=== PATIENT | female | born 1990 | race Asian ===

== ENCOUNTER 2016-12-11 16:40 | Inpatient (IN) | payer BC ==
[2016-12-11] MEDS ORDERED: Sodium Chloride 0.9% 2.5 ML Syringe FLUSH PRN (16:55)
[2016-12-11] MEDS ORDERED: Sodium Chloride 0.9% 10 ML Syringe FLUSH PRN (16:55)
[2016-12-11] MEDS ORDERED: Water For Irrigation,Sterile 1,000 ML Container IRR PRN (16:55)
[2016-12-11] MEDS ORDERED: Terbutaline 1 MG/ML SDV SUBCUT PRN (16:55)
[2016-12-11] MEDS ORDERED: Methylergonovine 0.2 MG/1 ML Amp IM PRN (16:55)
[2016-12-11] MEDS ORDERED: Carboprost Tromethamine 250 MCG/1 ML Amp IM PRN (16:55)
[2016-12-11] MEDS ORDERED: Misoprostol 200 MCG Tab PO PRN (16:55)
[2016-12-11] MEDS ORDERED: Misoprostol 25 MCG (1/4 of 100 MCG) Tab VAG PRN (16:55)
[2016-12-11] MEDS ORDERED: Lidocaine 1% 50 ML MDV INJECT PRN (16:55)
[2016-12-11] MEDS ORDERED: Misoprostol 25 MCG (1/4 of 100 MCG) Tab VAG SCH (17:00)
[2016-12-11] MEDS ORDERED: Oxytocin/Lactated Ringers 30 UNIT/500 ML BAG IV SCH ×2 (17:00)
[2016-12-11] MEDS: Lactated Ringers 1,000 ML IV SCH (17:30)
[2016-12-11] MEDS: Butorphanol 1 MG/ML SDV IVPUSH PRN ×2 (20:45→22:13)
[2016-12-12] MEDS: Butorphanol 1 MG/ML SDV IVPUSH PRN (00:10)
[2016-12-12] MEDS: Lactated Ringers 1,000 ML IV SCH ×3 (01:09→05:42)
--- NOTE | 2016-12-12 01:24 | PCM.PREANE ---
Preanesthetic Assessment - Anesthesia/Transfusion/Family Hx Anesthesia History: No Prior Anesthesia Transfusion History: No Prior Transfusion(s) - Physical Assessment Height: 5 ft Weight: 64.864 kg - Lab Values: Laboratory Last Values WBC 13.12 K/uL (4.0-11.0) H 12/11/16 17:21 RBC 4.13 M/uL (4.30-5.90) L 12/11/16 17:21 Hgb 12.3 g/dL (12.0-16.0) 12/11/16 17:21 Hct 37.8 % (36.0-46.0) 12/11/16 17:21 MCV 91.5 fL (80.0-98.0) 12/11/16 17:21 MCH 29.8 pg (27.0-32.0) 12/11/16 17:21 MCHC 32.5 g/dL (31.0-37.0) 12/11/16 17:21 RDW Std Deviation 46.1 fl (28.0-62.0) 12/11/16 17:21 RDW Coeff of Maria Elena 14 % (11.0-15.0) 12/11/16 17:21 Plt Count 212 K/uL (150-400) 12/11/16 17:21 MPV 10.70 fL (7.40-12.00) 12/11/16 17:21 Nucleated RBC % 0.0 /100WBC 12/11/16 17:21 Nucleated RBCs # 0 K/uL 12/11/16 17:21 Blood Type O POSITIVE 12/11/16 17:21 Antibody Screen NEGATIVE 12/11/16 17:21 - Allergies Allergies/Adverse Reactions: Allergies Allergy/AdvReac Type Severity Reaction Status Date / Time No Known Allergies Allergy Verified 12/11/16 16:54 PreAnesthesia Questionnaire - Past Health History Medical/Surgical History: Denies Medical/Surgical History HEENT History: Reports: Impaired vision Cardiovascular History: Reports: None Respiratory History: Reports: None Gastrointestinal History: Reports: GERD Genitourinary History: Reports: None ALARM MECHANIC History: Reports: Polycystic Ovaries, : 1 Para: 0 LMP (Approximate): Musculoskeletal History: Reports: None Neurological History: Reports: None Psychiatric History: Reports: None Endocrine/Metabolic History: Reports: None Hematologic History: Reports: None Immunologic History: Reports: None Oncologic (Cancer) History: Reports: None Dermatologic History: Reports: None - Infectious Disease History Infectious Disease History: Reports: None - Past Surgical History HEENT Surgical History: Reports: None - SUBSTANCE USE Smoking Status *Q: Never Smoker Tobacco Use Within Last Twelve Months: No Second Hand Smoke Exposure: No Recreational Drug Use History: No - CURRENT (IN HOUSE) MEDS Current Meds: Current Medications Butorphanol Tartrate (Stadol) 1 mg IVPUSH Q1H PRN PRN Reason: Pain Last Admin: 12/12/16 00:10 Dose: 1 mg Carboprost Tromethamine (Hemabate Ds) 250 mcg IM ASDIRECTED PRN PRN Reason: Post Hemorrhage Lactated Ringer's (Ringers, Lactated) 1,000 mls @ 150 mls/hr IV ASDIRECTED RD Last Admin: 12/12/16 01:09 Dose: 150 mls/hr Oxytocin/Lactated Ringer's (Pitocin In Lr 30 Units/500 Ml) 30 unit in 500 mls @ 2 mls/hr IV TITRATE RD; 2 MUNITS/MIN PRN Reason: Protocol Lidocaine HCl (Xylocaine 1%) 50 ml INJECT .ONCE PRN PRN Reason: Laceration repair Methylergonovine Maleate (Methergine) 0.2 mg IM ASDIRECTED PRN PRN Reason: Post Hemorrhage Misoprostol (Cytotec) 200 mcg PO .ONCE PRN PRN Reason: Post Hemorrhage Misoprostol (Cytotec) [address] Misoprostol (Cytotec) 25 mcg VAG Q4H PRN PRN Reason: Cervical Ripening Stop: 12/12/16 20:56 Sodium Chloride (Saline Flush) 10 ml FLUSH ASDIRECTED PRN PRN Reason: Keep Vein Open Sodium Chloride (Saline Flush) 2.5 ml FLUSH ASDIRECTED PRN PRN Reason: Keep Vein Open Sterile Water (Sterile Water For Irrigation) 1,000 ml IRR ASDIRECTED PRN PRN Reason: delivery Terbutaline Sulfate (Brethine) 0.25 mg SUBCUT ASDIRECTED PRN PRN Reason: Tacysystole Discontinued Medications Oxytocin/Lactated Ringer's (Pitocin In Lr 30 Units/500 Ml) 30 unit in 500 mls @ 999 mls/hr IV TITRATE RD; 999 MUNITS/MIN PRN Reason: Protocol Stop: 12/11/16 17:31 Preanesthetic Assessment - ANESTHESIA/TRANSFUSION/FAMILY HX Anesthesia/Transfusion History: No Prior Anesthesia Family History of Anesthesia Reaction: No - REVIEW OF SYSTEMS Constitutional: Reports: no symptoms HEALTH CLAIMS EXAMINER: Reports: no symptoms Respiratory: Reports: no symptoms Cardiovascular: Reports: no symptoms GI: Reports: no symptoms Other: Reports: None - PHYSICAL ASSESSMENT HR: 80 O2 Sat by Pulse Oximetry: 99 RR: 20 BP: 131/83 Height: 5 ft Weight: 64.864 kg ASA Class: 2 Mental Status: Alert & Oriented x3 Airway Class: Mallampati = 2 Dentition: Reports: Normal Dentition Thyro-Mental Finger Breadths: 3 Mouth Opening Finger Breadths: 3 ROM/Head Extension: Full Respiratory Status: lungs clear to auscultation bilaterally Cardiovascular Status: regular rate & rhythm, normal S1, S2, no murmur, blood pressure WNL - LAB Values: Laboratory Last Values WBC 13.12 K/uL (4.0-11.0) H 12/11/16 17:21 RBC 4.13 M/uL (4.30-5.90) L 12/11/16 17:21 Hgb 12.3 g/dL (12.0-16.0) 12/11/16 17:21 Hct 37.8 % (36.0-46.0) 12/11/16 17:21 MCV 91.5 fL (80.0-98.0) 12/11/16 17:21 MCH 29.8 pg (27.0-32.0) 12/11/16 17:21 MCHC 32.5 g/dL (31.0-37.0) 12/11/16 17:21 RDW Std Deviation 46.1 fl (28.0-62.0) 12/11/16 17:21 RDW Coeff of Maria Elena 14 % (11.0-15.0) 12/11/16 17:21 Plt Count 212 K/uL (150-400) 12/11/16 17:21 MPV 10.70 fL (7.40-12.00) 12/11/16 17:21 Nucleated RBC % 0.0 /100WBC 12/11/16 17:21 Nucleated RBCs # 0 K/uL 12/11/16 17:21 Blood Type O POSITIVE 12/11/16 17:21 Antibody Screen NEGATIVE 12/11/16 17:21 - ALLERGIES Allergies/Adverse Reactions: Allergies Allergy/AdvReac Type Severity Reaction Status Date / Time No Known Allergies Allergy Verified 12/11/16 16:54 - ANESTHESIA PLAN Anesthesia Type Planned: Epidural - ACKNOWLEDGEMENTS Pt an Appropriate Candidate for the Planned Anesthesia: Yes Alternatives and Risks of Anesthesia Discussed w Pt/Guardian: Yes Pt/Guardian Understands and Agrees with Anesthesia Plan: Yes
[2016-12-12] MEDS ORDERED: Ropivacaine HCl/PF 100 ML ONE ×2 (01:26→09:36)
[2016-12-12] MEDS ORDERED: fentaNYL 100 MCG/2 ML SDV ONE (01:26)
[2016-12-12] MEDS ORDERED: Bupivacaine 0.25% 10 ML SDV ONE (08:24)
--- NOTE | 2016-12-12 09:13 | PCM.SN ---
- Free Text/Narrative Note: Called for increased pain. 0.25% Bupivacaine 5 mL via epidural was given for increasing painful vaginal pressure/pain. Pt states her pain is better at this time. Instructed her on the use of her GROUT MACHINE TENDER epidural.
--- NOTE | 2016-12-12 10:25 | PCM.SN ---
- Free Text/Narrative Note: 0955 - Epidural bag changed. Pt states she is still comfortable. VSS
[2016-12-12] MEDS ORDERED: Lidocaine 2% 5 ML SDV ONE ×3 (11:37→13:03)
--- NOTE | 2016-12-12 11:50 | PCM.SN ---
- Free Text/Narrative Note: consulted for increased pain in lower abdomen. bilateral distribution of pain. , 40 weeks. complete, but not wanting to push secondary to pain. Epidural working well untill this point. On Pitocin. Epidural topped off with 7 ml of preservative free 2% lidocaine at 1145.
--- NOTE | 2016-12-12 13:15 | PCM.SN ---
- Free Text/Narrative Note: Still having lower abdominal pain. Dr Guzman reports pt has perineal sensation with exam. Will give an additional dose of 10 ml 2% preservative free lidocain. If still inadequate analgesia will pull epidural catheter and give 2.5 mg bupivicaine intrathecal. Catheter site looks good. No evidence of catheter displacement. 10 ml of Lidocaine given at 1300. Pt reports significant relief of pain at 1315.
[2016-12-12] MEDS ORDERED: Bupivacaine 0.5% 10 ML SDV ONE (13:23)
[2016-12-12] MEDS ORDERED: Hydrocortisone 2.5% Crm 30 GM Tube TOP PRN (14:39)
[2016-12-12] MEDS ORDERED: Bisacodyl 10 MG Supp RECTAL PRN (14:39)
[2016-12-12] MEDS ORDERED: Acetaminophen 500 MG Tab PO PRN ×2 (14:39)
[2016-12-12] MEDS ORDERED: Lanolin 100% Cream 7 GM Tube TOP PRN (14:39)
[2016-12-12] MEDS ORDERED: oxyCODONE 5 MG Tab PO PRN (14:39)
[2016-12-12] MEDS ORDERED: Ibuprofen 400 MG Tab PO PRN (14:39)
[2016-12-12] MEDS: Witch Hazel Medicated Pads 40/Jar TOP PRN (14:58)
[2016-12-12] MEDS: Benzocaine/Menthol 20%-0.5% Spray 78 GM Cannister TOP PRN (14:58)
[2016-12-12] MEDS: Ibuprofen 800 MG Tab PO PRN (14:59)
--- NOTE | 2016-12-12 18:09 | PCM48HPAN ---
Post Anesthesia Note - EVALUATION WITHIN 48HRS OF ANESTHETIC Vital Signs in Normal Range: Yes Patient Participated in Evaluation: Yes Respiratory Function Stable: Yes Airway Patent: Yes Cardiovascular Function Stable: Yes Hydration Status Stable: Yes Pain Control Satisfactory: Yes Nausea and Vomiting Control Satisfactory: Yes Mental Status Recovered: Yes
--- NOTE | 2016-12-12 22:52 | OR ---
SURGEON: Matilde Grove M.D. DATE OF PROCEDURE: 12/12/2016 PREOPERATIVE DIAGNOSES: 1. A 40 and 6 weeks intrauterine . 2. Labor augmentation. 3. Maternal exhaustion. POSTOPERATIVE DIAGNOSES: 1. A 40 and 6 weeks intrauterine . 2. Labor augmentation. 3. Maternal exhaustion. PROCEDURE: Vacuum assisted vaginal delivery, second-degree midline laceration repair. ESTIMATED FLUID LOSS: 350 mL. ANESTHESIA: Epidural and local. COMPLICATIONS: None known. FINDINGS: Term male. score 8 at 1 minute, 9 at 5 minutes. Weight of 3400 g. Spontaneous delivery, intact placenta, 3-vessel cord. DISPOSITION: Infant to nursery, mom in LDRP, stable. PROCEDURE IN DETAIL: Hyacinth is a 26-year-old, G1, P0 at 40 and 6 weeks' gestational age, who presented on the evening of 12/11/2016. She was scheduled for induction, but on examination was found to have cervical change to 3 cm and rusty regularly. Therefore, she was admitted, routine labs were drawn, and she was monitored and continued to progress in labor. Shortly after midnight, she became increasingly uncomfortable and underwent regional anesthesia in the form epidural. She became more comfortable. heart tones were 140s with variability. However, with epidural and relaxation, the contractions spaced out significantly, therefore, Pitocin augmentation was initiated this morning. Shortly before 9:00 a.m., the patient was found to be 8 cm, 90% effaced, -1 station. There was a fore-bag present, this was ruptured. Clear fluid returned. She is group B beta strep negative. The patient had spontaneous rupture of membranes approximately at 1:00 a.m. The patient continued to labor and shortly over 2 hours, progressed to complete, 100% effaced, +1 station. She began pushing efforts, but became increasingly uncomfortable to the point where she no longer wanted to push and wanted the Pitocin discontinued, therefore, Anesthesia was consulted and they did re-dose her epidural. She became more comfortable for a short interval, but became increasingly uncomfortable again, once again hampering her ability to continue with pushing efforts. heart tones remained in the 140s. position is at +2, therefore, consultation with Anesthesia, have asked them to bolus much more densely so that we can either evaluate with pushing efforts, and perhaps facilitated vacuum assisted vaginal delivery or make decision to proceed with C- section, and the patient is so uncomfortable she states that she would rather have a than have to feel the pain any longer. Therefore, the patient was re-bolused with her epidural and did become more comfortable. With this and pushing efforts, she was able to push to a +3, but is increasingly tired and having difficulty extending the pushing efforts. Therefore, she is asking for assistance. Given the option of versus operative vaginal delivery, she would like to try an operative vaginal delivery. The risks of the vacuum assisted vaginal delivery discussed with her including maternal trauma, including lacerations, hematoma of the vagina, scalp laceration, hematoma, or intraperitoneal bleeding. She voiced her understanding and would like to proceed with an operative vaginal delivery. Therefore, suture lines were palpated including the vaginal suture. The was felt to be SARA, and was able to place the vacuum and with the next set of contractions, was able to assist to deliver to a +4 and ultimately +5. During this interval, there were 2 pop-offs. This was just as the patient was nearing the +5 station. At the +5 station, the head then was able to deliver. The vacuum at all time was maintained in the green zone when insufflated and desufflated in between contractions. The vacuum was removed once the head was delivered. The anterior shoulder, posterior shoulder, and remainder of the body was delivered without difficulty. The infant's oropharynx and nares bulb suctioned. Cord was clamped x2 and cut. Infant was handed off to mother with attending nursing staff at side. Cord arterial, cord venous, and cord blood samples were obtained. Light suprapubic pressure was applied while the placenta was delivered spontaneously intact. Vigorous fundal uterine massage was then applied while 30 units Pitocin was delivered in 500 mL IV fluid. Upon inspection of the cervix, vaginal sidewalls, and perineum, there was found to be a second-degree midline laceration present. This was repaired using 3-0 Vicryl in the usual fashion and prepped the region with 1% lidocaine to help with continued analgesia. The patient has remained comfortable during this repair. Hemostasis appears evident. Sponge count and needle count was correct. The patient will remain in LDRP, to nursery. ERIK / POLO /[id number]
[2016-12-13] MEDS: Docusate Sodium 100 MG Cap PO PRN (00:11)
[2016-12-13] MEDS: Ibuprofen 800 MG Tab PO PRN ×2 (00:11→17:08)
--- NOTE | 2016-12-13 04:46 | PCM.PNPP ---
- General Info Date of Service: 12/13/16 Functional Status: Reports: pain controlled, tolerating diet, ambulating, urinating - Review of Systems General: Denies: Fever, Weakness Pulmonary: Denies: shortness of breath Cardiovascular: Denies: Chest Pain, Palpitations, Lightheadedness Gastrointestinal: Denies: Nausea, Vomiting Psychiatric: Reports: no symptoms - General Info Date of Service: 12/13/16 - Patient Data Vital Signs - most recent: Last Vital Signs Temp 37.1 C 12/12/16 20:00 Pulse 109 H 12/12/16 20:00 Resp 18 12/12/16 20:00 BP 104/70 12/12/16 20:00 Pulse Ox 96 12/12/16 20:00 Weight - most recent: 64.864 kg Med Orders - Current: Current Medications Acetaminophen (Tylenol Extra Strength) 500 mg PO Q4H PRN PRN Reason: Pain Acetaminophen (Tylenol Extra Strength) 1,000 mg PO Q4H PRN PRN Reason: Pain Benzocaine/Menthol (Dermoplast Pain Relief 20%-0.5% [place]) 78 gm TOP ASDIRECTED PRN PRN Reason: Perineal Comfort Measure Last Admin: 12/12/16 14:58 Dose: 1 can Bisacodyl (Dulcolax) 10 mg RECTAL .ONCE PRN PRN Reason: Constipation Carboprost Tromethamine (Hemabate Ds) 250 mcg IM ASDIRECTED PRN PRN Reason: Post Hemorrhage Docusate Sodium (Colace) 100 mg PO BID PRN PRN Reason: Constipation Last Admin: 12/13/16 00:11 Dose: 100 mg Emollient Ointment (Lansinoh Hpa) 0 gm TOP ASDIRECTED PRN PRN Reason: Sore Nipples Last Admin: 12/12/16 14:57 Dose: 1 tube Hydrocortisone (Proctozone-Hc 2.5% Crm) 1 gm TOP 6XDAY PRN PRN Reason: Itching Last Admin: 12/12/16 14:58 Dose: 1 tube Oxytocin/Lactated Ringer's (Pitocin In Lr 30 Units/500 Ml) 30 unit in 500 mls @ 2 mls/hr IV TITRATE RD; 2 MUNITS/MIN PRN Reason: Protocol Last Titration: 12/12/16 14:48 Dose: Infused Ibuprofen (Motrin) 400 mg PO Q4H PRN PRN Reason: Pain Ibuprofen (Motrin) 800 mg PO Q6H PRN PRN Reason: Pain Last Admin: 12/13/16 00:11 Dose: 800 mg Methylergonovine Maleate (Methergine) 0.2 mg IM ASDIRECTED PRN PRN Reason: Post Hemorrhage Oxycodone HCl (Oxycodone) 5 mg PO Q2H PRN PRN Reason: Pain Last Admin: 12/12/16 15:00 Dose: 5 mg Sodium Chloride (Saline Flush) 10 ml FLUSH ASDIRECTED PRN PRN Reason: Keep Vein Open Francisco Jane (Tucks) 1 pad TOP ASDIRECTED PRN PRN Reason: comfort care Last Admin: 12/12/16 14:58 Dose: 1 carton Discontinued Medications Bupivacaine HCl (Sensorcaine-Mpf 0.25%) Confirm Administered Dose 10 ml .ROUTE .STK-MED ONE Stop: 12/12/16 08:25 Last Admin: 12/12/16 14:38 Dose: Not Given Bupivacaine HCl (Sensorcaine-Mpf 0.5%) Confirm Administered Dose 10 ml .ROUTE .STK-MED ONE Stop: 12/12/16 13:24 Last Admin: 12/12/16 14:38 Dose: Not Given Butorphanol Tartrate (Stadol) 1 mg IVPUSH Q1H PRN PRN Reason: Pain Last Admin: 12/12/16 00:10 Dose: 1 mg Fentanyl (Sublimaze) Confirm Administered Dose 100 mcg .ROUTE .STK-MED ONE Stop: 12/12/16 01:27 Last Admin: 12/12/16 14:37 Dose: Not Given Lactated Ringer's (Ringers, Lactated) 1,000 mls @ 150 mls/hr IV ASDIRECTED RD Last Admin: 12/12/16 05:42 Dose: 150 mls/hr Oxytocin/Lactated Ringer's (Pitocin In Lr 30 Units/500 Ml) 30 unit in 500 mls @ 999 mls/hr IV TITRATE RD; 999 MUNITS/MIN PRN Reason: Protocol Stop: 12/11/16 17:31 Last Admin: 12/12/16 14:36 Dose: Not Given Ropivacaine (Naropin 0.2%) Confirm Administered Dose 100 mls @ as directed .ROUTE .STK-MED ONE Stop: 12/12/16 01:27 Last Admin: 12/12/16 14:36 Dose: Not Given Ropivacaine (Naropin 0.2%) Confirm Administered Dose 100 mls @ as directed .ROUTE .STK-MED ONE Stop: 12/12/16 09:37 Last Admin: 12/12/16 14:38 Dose: Not Given Lidocaine (Xylocaine-Mpf 2%) Confirm Administered Dose 5 ml .ROUTE .STK-MED ONE Stop: 12/12/16 11:38 Last Admin: 12/12/16 14:38 Dose: Not Given Lidocaine (Xylocaine-Mpf 2%) Confirm Administered Dose 5 ml .ROUTE .STK-MED ONE Stop: 12/12/16 11:40 Last Admin: 12/12/16 14:38 Dose: Not Given Lidocaine (Xylocaine-Mpf 2%) Confirm Administered Dose 20 ml .ROUTE .STK-MED ONE Stop: 12/12/16 13:04 Last Admin: 12/12/16 14:38 Dose: Not Given Lidocaine HCl (Xylocaine 1%) 50 ml INJECT .ONCE PRN PRN Reason: Laceration repair Last Admin: 12/12/16 14:26 Dose: 50 ml Misoprostol (Cytotec) 200 mcg PO .ONCE PRN PRN Reason: Post Hemorrhage Misoprostol (Cytotec) [address] Misoprostol (Cytotec) 25 mcg VAG Q4H PRN PRN Reason: Cervical Ripening Stop: 12/12/16 20:56 Sodium Chloride (Saline Flush) 2.5 ml FLUSH ASDIRECTED PRN PRN Reason: Keep Vein Open Sterile Water (Sterile Water For Irrigation) 1,000 ml IRR ASDIRECTED PRN PRN Reason: delivery Last Admin: 12/12/16 14:26 Dose: 1,000 ml Terbutaline Sulfate (Brethine) 0.25 mg SUBCUT ASDIRECTED PRN PRN Reason: Tacysystole - Interaction Infant Disposition, : in Room with Family Support Person: Friend - Recovery Exam Fundal Tone: Firm Fundal Level: At Umbilicus Lochia Amount: Small Lochia Color: Rubra/Red Perineum Description: Edematous Episiotomy/Laceration: Approximated Bladder Status: Voiding Urinary Elimination: Voided - Exam General: alert, oriented Lungs: Normal respiratory effort Cardiovascular: Regular Rate, Regular Rhythm Abdomen: bowel sounds present, soft. No: CVA tenderness Extremities: no calf tenderness Skin: warm, dry, intact Psy/Mental Status: alert, normal affect - Problem List & Annotations (1) Status post vacuum-assisted vaginal delivery SNOMED Code(s): 174951247, [id number] Code(s): Z87.42 - PERSONAL HISTORY OF OTH DISEASES OF THE FEMALE GENITAL TRACT Status: Acute Current Visit: Yes - Problem List Review Problem List Initiated/Reviewed/Updated: Yes - My Orders Last 24 Hours: My Active Orders 12/12/16 14:39 Patient Status [ADT] Routine May Shower [RC] ASDIRECTED Up ad Zara [RC] ASDIRECTED Vital Signs [RC] PER UNIT ROUTINE Acetaminophen [Tylenol Extra Strength] 1,000 mg PO Q4H PRN Acetaminophen [Tylenol Extra Strength] 500 mg PO Q4H PRN Benzocaine/Menthol [Dermoplast Pain Relief 20%-0.5% [place]] 78 gm TOP ASDIRECTED PRN Bisacodyl [Dulcolax] 10 mg RECTAL .ONCE PRN Docusate Sodium [Colace] 100 mg PO BID PRN Hydrocortisone [Proctozone-HC 2.5% Crm] 1 gm TOP 6XDAY PRN Ibuprofen [Motrin] 400 mg PO Q4H PRN Ibuprofen [Motrin] 800 mg PO Q6H PRN Lanolin [Lansinoh HPA] See Dose Instructions TOP ASDIRECTED PRN Witch Lucinda [Tucks] 1 pad TOP ASDIRECTED PRN oxyCODONE 5 mg PO Q2H PRN Assess Lochia [WOMSER] Per Unit Routine Assess Uterine Involution [WOMSER] Per Unit Routine Breast Pump [WOMSER] Per Unit Routine Ice Therapy [OM.PC] Per Unit Routine Perineal Care [OM.PC] Per Unit Routine Peripheral IV Discontinue [OM.PC] Routine Sitz Bath [OM.PC] Per Unit Routine 12/12/16 Dinner Regular Diet [DIET] 12/13/16 05:11 HEMOGLOBIN/HEMATOCRIT,HH [HEME] Timed - Assessment Assessment:: PPD 1 status post VAVD/2nd MLL repaired - Plan Plan:: Work with feeding infant today--continue cares. Anticipate discharge in the morning.
[2016-12-14] MEDS: Ibuprofen 800 MG Tab PO PRN (06:28)
[2016-12-14] MEDS: Witch Hazel Medicated Pads 40/Jar TOP PRN (06:29)
[2016-12-14] MEDS: Benzocaine/Menthol 20%-0.5% Spray 78 GM Cannister TOP PRN (06:30)
--- NOTE | 2016-12-14 08:15 | PCM.PNPP ---
- General Info Date of Service: 12/14/16 Functional Status: Reports: pain controlled, tolerating diet, ambulating, urinating - Review of Systems General: Denies: Fever, Weakness Pulmonary: Denies: shortness of breath Cardiovascular: Denies: Chest Pain, Palpitations, Lightheadedness Gastrointestinal: Denies: Abdominal pain, Nausea, Vomiting Genitourinary: Denies: flank pain Psychiatric: Reports: no symptoms - General Info Date of Service: 12/14/16 - Patient Data Vital Signs - most recent: Last Vital Signs Temp 36.8 C 12/14/16 04:49 Pulse 81 12/14/16 04:49 Resp 17 12/14/16 04:49 BP 112/75 12/14/16 04:49 Pulse Ox 95 12/14/16 04:49 Weight - most recent: 64.864 kg Med Orders - Current: Current Medications Acetaminophen (Tylenol Extra Strength) 500 mg PO Q4H PRN PRN Reason: Pain Acetaminophen (Tylenol Extra Strength) 1,000 mg PO Q4H PRN PRN Reason: Pain Benzocaine/Menthol (Dermoplast Pain Relief 20%-0.5% [place]) 78 gm TOP ASDIRECTED PRN PRN Reason: Perineal Comfort Measure Last Admin: 12/14/16 06:30 Dose: 1 spray Bisacodyl (Dulcolax) 10 mg RECTAL .ONCE PRN PRN Reason: Constipation Carboprost Tromethamine (Hemabate Ds) 250 mcg IM ASDIRECTED PRN PRN Reason: Post Hemorrhage Docusate Sodium (Colace) 100 mg PO BID PRN PRN Reason: Constipation Last Admin: 12/13/16 00:11 Dose: 100 mg Emollient Ointment (Lansinoh Hpa) 0 gm TOP ASDIRECTED PRN PRN Reason: Sore Nipples Last Admin: 12/12/16 14:57 Dose: 1 tube Hydrocortisone (Proctozone-Hc 2.5% Crm) 1 gm TOP 6XDAY PRN PRN Reason: Itching Last Admin: 12/12/16 14:58 Dose: 1 tube Oxytocin/Lactated Ringer's (Pitocin In Lr 30 Units/500 Ml) 30 unit in 500 mls @ 2 mls/hr IV TITRATE RD; 2 MUNITS/MIN PRN Reason: Protocol Last Titration: 12/12/16 14:48 Dose: Infused Ibuprofen (Motrin) 400 mg PO Q4H PRN PRN Reason: Pain Ibuprofen (Motrin) 800 mg PO Q6H PRN PRN Reason: Pain Last Admin: 12/14/16 06:28 Dose: 800 mg Methylergonovine Maleate (Methergine) 0.2 mg IM ASDIRECTED PRN PRN Reason: Post Hemorrhage Oxycodone HCl (Oxycodone) 5 mg PO Q2H PRN PRN Reason: Pain Last Admin: 12/12/16 15:00 Dose: 5 mg Sodium Chloride (Saline Flush) 10 ml FLUSH ASDIRECTED PRN PRN Reason: Keep Vein Open Witch Lucinda (Tucks) 1 pad TOP ASDIRECTED PRN PRN Reason: comfort care Last Admin: 12/14/16 06:29 Dose: 1 pad Discontinued Medications Bupivacaine HCl (Sensorcaine-Mpf 0.25%) Confirm Administered Dose 10 ml .ROUTE .STK-MED ONE Stop: 12/12/16 08:25 Last Admin: 12/12/16 14:38 Dose: Not Given Bupivacaine HCl (Sensorcaine-Mpf 0.5%) Confirm Administered Dose 10 ml .ROUTE .STK-MED ONE Stop: 12/12/16 13:24 Last Admin: 12/12/16 14:38 Dose: Not Given Butorphanol Tartrate (Stadol) 1 mg IVPUSH Q1H PRN PRN Reason: Pain Last Admin: 12/12/16 00:10 Dose: 1 mg Fentanyl (Sublimaze) Confirm Administered Dose 100 mcg .ROUTE .STK-MED ONE Stop: 12/12/16 01:27 Last Admin: 12/12/16 14:37 Dose: Not Given Lactated Ringer's (Ringers, Lactated) 1,000 mls @ 150 mls/hr IV ASDIRECTED RD Last Admin: 12/12/16 05:42 Dose: 150 mls/hr Oxytocin/Lactated Ringer's (Pitocin In Lr 30 Units/500 Ml) 30 unit in 500 mls @ 999 mls/hr IV TITRATE RD; 999 MUNITS/MIN PRN Reason: Protocol Stop: 12/11/16 17:31 Last Admin: 12/12/16 14:36 Dose: Not Given Ropivacaine (Naropin 0.2%) Confirm Administered Dose 100 mls @ as directed .ROUTE .STK-MED ONE Stop: 12/12/16 01:27 Last Admin: 12/12/16 14:36 Dose: Not Given Ropivacaine (Naropin 0.2%) Confirm Administered Dose 100 mls @ as directed .ROUTE .STK-MED ONE Stop: 12/12/16 09:37 Last Admin: 12/12/16 14:38 Dose: Not Given Lidocaine (Xylocaine-Mpf 2%) Confirm Administered Dose 5 ml .ROUTE .STK-MED ONE Stop: 12/12/16 11:38 Last Admin: 12/12/16 14:38 Dose: Not Given Lidocaine (Xylocaine-Mpf 2%) Confirm Administered Dose 5 ml .ROUTE .STK-MED ONE Stop: 12/12/16 11:40 Last Admin: 12/12/16 14:38 Dose: Not Given Lidocaine (Xylocaine-Mpf 2%) Confirm Administered Dose 20 ml .ROUTE .STK-MED ONE Stop: 12/12/16 13:04 Last Admin: 12/12/16 14:38 Dose: Not Given Lidocaine HCl (Xylocaine 1%) 50 ml INJECT .ONCE PRN PRN Reason: Laceration repair Last Admin: 12/12/16 14:26 Dose: 50 ml Misoprostol (Cytotec) 200 mcg PO .ONCE PRN PRN Reason: Post Hemorrhage Misoprostol (Cytotec) [address] Misoprostol (Cytotec) 25 mcg VAG Q4H PRN PRN Reason: Cervical Ripening Stop: 12/12/16 20:56 Sodium Chloride (Saline Flush) 2.5 ml FLUSH ASDIRECTED PRN PRN Reason: Keep Vein Open Sterile Water (Sterile Water For Irrigation) 1,000 ml IRR ASDIRECTED PRN PRN Reason: delivery Last Admin: 12/12/16 14:26 Dose: 1,000 ml Terbutaline Sulfate (Brethine) 0.25 mg SUBCUT ASDIRECTED PRN PRN Reason: Tacysystole - Interaction Infant Disposition, : [place] in Room with Family Infant Interaction: Holding Support Person: Friend - Recovery Exam Fundal Tone: Firm Fundal Level: At Umbilicus Fundal Placement: Midline Lochia Amount: Scant Lochia Color: Rubra/Red Perineum Description: Edematous Episiotomy/Laceration: Approximated Bladder Status: Voiding Urinary Elimination: Voided - Exam General: alert, oriented Lungs: Normal respiratory effort Cardiovascular: Regular Rate, Regular Rhythm Abdomen: bowel sounds present, soft. 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 She would like to go home today. Discharge instructions reviewed. Infection and bleeding warnings reviewed. Follow up at [facility] 6 weeks. Discharge to home today.
[2016-12-14 08:50] VITALS: BP 119/72
[2016-12-14] MEDS: Docusate Sodium 100 MG Cap PO PRN (11:23)
== END 2016-12-14 12:50 | disposition home or self-care (01) | DRG 560 ==
LOC: MW.OBCHECK 16:40 → MW.OB 16:48 → MW.OBCHECK 16:54 → MW.OB 16:55 → OBSVTOIN 12-12 13:47 → MW.OB 12-12 21:42
PROVIDERS: ADMIT Obstetrics & Gynecology; ATTEND Obstetrics & Gynecology
PROC: 10D07Z6 Extraction of Products of Conception, Vacuum, Via Natural or Artificial Opening (ICD-10-PCS; principal; 2016-12-12)
PROC: 0KQM0ZZ Repair Perineum Muscle, Open Approach (ICD-10-PCS; 2016-12-12)
DX: O75.81 Maternal exhaustion complicating labor and delivery (principal); O66.5 Attempted application of vacuum extractor and forceps; O70.1 Second degree perineal laceration during delivery; Z3A.40 40 weeks gestation of pregnancy; Z37.0 Single live birth
CPT/HCPCS: 01967; 36415; 51703; 59025; 85014; 85018; 85027; 86850; 86900; 86901; A9270-GY; J0595; J2795; J3010; J7120

== ENCOUNTER 2020-04-30 08:59 | Inpatient (IN) | payer BC ==
[2020-04-30] MEDS ORDERED: Butorphanol 1 MG/ML SDV IVPUSH PRN (09:38)
[2020-04-30] MEDS ORDERED: Misoprostol 200 MCG Tab PO PRN (09:38)
[2020-04-30] MEDS ORDERED: Sodium Chloride 0.9% 10 ML Syringe FLUSH PRN (09:38)
[2020-04-30] MEDS ORDERED: Methylergonovine 0.2 MG/1 ML Amp IM PRN (09:38)
[2020-04-30] MEDS ORDERED: Lidocaine 1% 50 ML MDV INJECT PRN (09:38)
[2020-04-30] MEDS ORDERED: Tranexamic Acid 1,000 MG in Sodium Chloride 0.9% 100 ML IV PRN (09:38)
[2020-04-30] MEDS ORDERED: Water For Irrigation,Sterile 1,000 ML Container IRR PRN (09:38)
[2020-04-30] MEDS ORDERED: Nalbuphine 10 MG/1 ML Vial IVPUSH PRN (09:38)
[2020-04-30] MEDS ORDERED: Sodium Chloride 0.9% 2.5 ML Syringe FLUSH PRN (09:38)
[2020-04-30] MEDS ORDERED: Sodium Chloride 0.9% 10 ML SDV IV PRN (09:38)
[2020-04-30] MEDS ORDERED: Carboprost Tromethamine 250 MCG/1 ML Amp IM PRN (09:38)
[2020-04-30] MEDS ORDERED: Terbutaline 1 MG/ML SDV SUBCUT PRN (09:40)
[2020-04-30] MEDS ORDERED: Misoprostol 25 MCG (1/4 of 100 MCG) Tab VAG PRN ×2 (09:40)
[2020-04-30] MEDS ORDERED: Oxytocin/0.9 % Sodium Chloride 30 UNIT/500 ML BAG IV SCH ×2 (09:45)
[2020-04-30] MEDS: Lactated Ringers 1,000 ML IV SCH ×2 (11:50→13:19)
[2020-04-30] MEDS ORDERED: Oxytocin/0.9 % Sodium Chloride 30 UNIT/500 ML BAG ONE (12:36)
[2020-04-30] MEDS ORDERED: fentaNYL 100 MCG/2 ML SDV ONE ×2 (14:35→18:10)
[2020-04-30] MEDS ORDERED: Ropivacaine HCl/PF 100 ML ONE (14:35)
[2020-04-30 14:36] LABS: BLOOD UREA NITROGEN,BUN 4 mg/dL (7.0-18.0); CHLORIDE,CL 101 mmol/L (98-107); GLUCOSE RANDOM 66 mg/dL (74-106); POTASSIUM,K 2.9 mmol/L (3.5-5.1); SODIUM,NA 137 mmol/L (136-145)
--- NOTE | 2020-04-30 14:57 | PCM.PREANE ---
Preanesthetic Assessment - Anesthesia/Transfusion/Family Hx Anesthesia History: Prior Anesthesia Without Reaction Family History of Anesthesia Reaction: No Transfusion History: No Prior Transfusion(s) - Physical Assessment NPO Status Date: 04/30/20 NPO Status Time: 09:00 Height: 1.55 m Weight: 68.492 kg ASA Class: 2 - Lab Values: Laboratory Last Values WBC 13.66 K/uL (4.0-11.0) H 04/30/20 10:05 RBC 4.08 M/uL (4.30-5.90) L 04/30/20 10:05 Hgb 12.4 g/dL (12.0-16.0) 04/30/20 10:05 Hct 37.2 % (36.0-46.0) 04/30/20 10:05 MCV 91.2 fL (80.0-98.0) 04/30/20 10:05 MCH 30.4 pg (27.0-32.0) 04/30/20 10:05 MCHC 33.3 g/dL (31.0-37.0) 04/30/20 10:05 RDW Std Deviation 45.0 fl (28.0-62.0) 04/30/20 10:05 RDW Coeff of Maria Elena 14 % (11.0-15.0) 04/30/20 10:05 Plt Count 203 K/uL (150-400) 04/30/20 10:05 MPV 10.70 fL (7.40-12.00) 04/30/20 10:05 Nucleated RBC % 0.0 /100WBC 04/30/20 10:05 Nucleated RBCs # 0 K/uL 04/30/20 10:05 Sodium 137 mmol/L (136-145) 04/30/20 10:05 Potassium 2.9 mmol/L (3.5-5.1) L 04/30/20 10:05 Chloride 101 mmol/L (98-107) 04/30/20 10:05 Carbon Dioxide 24.0 mmol/L (21.0-32.0) 04/30/20 10:05 BUN 4 mg/dL (7.0-18.0) L 04/30/20 10:05 Creatinine 0.5 mg/dL (0.6-1.0) L 04/30/20 10:05 Est Cr Clr Drug Dosing 124.15 mL/min 04/30/20 10:05 Estimated GFR (MDRD) > 60.0 ml/min 04/30/20 10:05 Glucose 66 mg/dL (74-106) L 04/30/20 10:05 Calcium 8.0 mg/dL (8.5-10.1) L 04/30/20 10:05 Total Bilirubin 0.4 mg/dL (0.2-1.0) 04/30/20 10:05 AST 21 IU/L (15-37) 04/30/20 10:05 ALT 17 IU/L (14-63) 04/30/20 10:05 Alkaline Phosphatase 135 U/L (46-116) H 04/30/20 10:05 Total Protein 5.8 g/dL (6.4-8.2) L 04/30/20 10:05 Albumin 3.0 g/dL (3.4-5.0) L 04/30/20 10:05 Globulin 2.8 g/dL (2.6-4.0) 04/30/20 10:05 Albumin/Globulin Ratio 1.1 (0.9-1.6) 04/30/20 10:05 COVID-19 (LORI) NEGATIVE (NEGATIVE) 04/30/20 10:10 Blood Type O POSITIVE 04/30/20 10:05 Antibody Screen NEGATIVE 04/30/20 10:05 - Allergies Allergies/Adverse Reactions: Allergies Allergy/AdvReac Type Severity Reaction Status Date / Time No Known Allergies Allergy Verified 04/30/20 09:27 - Acknowledgements Anesthesia Type Planned: Epidural Pt an Appropriate Candidate for the Planned Anesthesia: Yes Alternatives and Risks of Anesthesia Discussed w Pt/Guardian: Yes Pt/Guardian Understands and Agrees with Anesthesia Plan: Yes PreAnesthesia Questionnaire - Past Health History Medical/Surgical History: Denies Medical/Surgical History HEENT History: Reports: Impaired Vision Cardiovascular History: Reports: None Respiratory History: Reports: None Gastrointestinal History: Reports: GERD Genitourinary History: Reports: None [employer] History: Reports: Polycystic Ovaries, Musculoskeletal History: Reports: None Neurological History: Reports: None Psychiatric History: Reports: None Endocrine/Metabolic History: Reports: None Hematologic History: Reports: None Immunologic History: Reports: None Oncologic (Cancer) History: Reports: None Dermatologic History: Reports: None - Infectious Disease History Infectious Disease History: Reports: None - Past Surgical History HEENT Surgical History: Reports: None - CURRENT (IN HOUSE) MEDS Current Meds: Current Medications Butorphanol Tartrate (Stadol) 1 mg IVPUSH Q1H PRN PRN Reason: Pain Carboprost Tromethamine (Hemabate Ds) 250 mcg IM ASDIRECTED PRN PRN Reason: Post Hemorrhage Lactated Ringer's (Ringers, Lactated) 1,000 mls @ 150 mls/hr IV ASDIRECTED RD Last Admin: 04/30/20 13:19 Dose: 150 mls/hr Documented by: Oxytocin/Sodium Chloride (Oxytocin 30 Unit/500 Ml-Ns) 30 unit in 500 mls @ 500 mls/hr IV TITRATE RD Tranexamic Acid 1,000 mg/ (Sodium Chloride) 110 mls @ 660 mls/hr IV ONETIME PRN PRN Reason: Bleeding Oxytocin/Sodium Chloride (Oxytocin 30 Unit/500 Ml-Ns) 30 unit in 500 mls @ 2 mls/hr IV TITRATE RD; Protocol Last Admin: 04/30/20 13:28 Dose: 2 munits/min, 2 mls/hr Documented by: Lidocaine HCl (Xylocaine 1%) 50 ml INJECT ONETIME PRN PRN Reason: Laceration repair Methylergonovine Maleate (Methergine) 0.2 mg IM ASDIRECTED PRN PRN Reason: Post Hemorrhage Misoprostol (Cytotec) 200 mcg PO ONETIME PRN PRN Reason: Post Hemorrhage Misoprostol (Cytotec) 25 mcg VAG ONETIME PRN PRN Reason: Cervical Ripening Misoprostol (Cytotec) 25 mcg VAG Q4H PRN PRN Reason: Cervical Ripening Nalbuphine HCl (Nubain) 10 mg IVPUSH Q1H PRN PRN Reason: Pain (severe 7-10) Sodium Chloride (Saline Flush) 10 ml FLUSH ASDIRECTED PRN PRN Reason: Keep Vein Open Sodium Chloride (Saline Flush) 2.5 ml FLUSH ASDIRECTED PRN PRN Reason: Keep Vein Open Sodium Chloride (Normal Saline) 10 ml IV ASDIRECTED PRN PRN Reason: IV Use Sterile Water (Sterile Water For Irrigation) 1,000 ml IRR ASDIRECTED PRN PRN Reason: delivery Terbutaline Sulfate (Brethine) 0.25 mg SUBCUT ASDIRECTED PRN PRN Reason: Tacysystole Discontinued Medications Fentanyl (Sublimaze) Confirm Administered Dose 100 mcg .ROUTE .STK-MED ONE Stop: 04/30/20 14:36 Oxytocin/Sodium Chloride (Oxytocin 30 Unit/500 Ml-Ns) Confirm Administered Dose 30 unit in 500 mls @ as directed .ROUTE .STK-MED ONE Stop: 04/30/20 12:37 Ropivacaine (Naropin 0.2%) Confirm Administered Dose 100 mls @ as directed .ROUTE .STK-MED ONE Stop: 04/30/20 14:36
--- NOTE | 2020-04-30 15:01 | PCM.PRNOTE ---
- Free Text/Narrative Note: Anes Note Patient requests epidural for L&D. Sitting position, level L3-L4 midline approach. Sterile technique, chloraprep scrub to lumbar area. Sterile fenestrated drape applied. Epidural space easily achieved using MARGARETTE technique. MARGARETTE at 3 cm. Cath threaded 5 cm with ease. Cath secured at skin at 9 cm using sterile clear adhesive dressing. William well. Test 1449 3 cc 1.5% lido with epi negative. Load 1453 10 cc o.2% ropivicaine with 1 mcg cc fentanyl in slow divided doses. Pump 1458 90 cc same solution. Rate is 8 cc h with 6 cc q 20 min prn bolus. Time with patient [id number] Reji Guzman CRNA
--- NOTE | 2020-04-30 18:16 | PCM.PRNOTE ---
- Free Text/Narrative Note: Anes Note Patient reports increasing discomfort as the she is approaching complete dilation. Sitting dose administered. 6 cc2% lido with epi plus 100 mcg fentanyl in slow divided doses at 1810 Time with patient [id number] Reji Guzman MAT WORKER
--- NOTE | 2020-04-30 20:04 | PCM.DEL ---
<Gary Castillo A - Last Filed: 04/30/20 19:58> L & D Note - General Info Date of Service: 04/30/20 Mother's Due Date: 05/01/20 - Delivery Note Labor: Spontaneous, Augmented by Oxytocin Delivery Outcome: Livebirth Delivery Method: Spontaneous Vaginal Delivery-Single Delivery Mode: Spontaneous Presentation: Left Occiput Anterior (SARA) Nuchal Cord: None Anesthesia Type: Epidural Anesthetic: Lidocaine (Xylocaine) 1% Plain Local Anesthetic Volume: 5cc Amniotic Fluid Description: Clear Episiotomy Type: None Laceration: 2nd Degree, Perineal Suture type: Vicryl Suture size: 3-0 Placenta: Intact, Spontaneous Cord: 3 Vessels Estimated Blood Loss: 200 Resuscitation Needed: No [place]: Bulb Syringe Score 1 min: 8 Score 5 min: 9 Second Stage Interventions: Reports: Pushing Effectively, Pushing, Knee Chest Position Delivery Comments (Free Text/Narrative):: Liveborn female (Angelia) born via at 1929, weight pending, APGARs 8 and 9, over a 2nd degree perineal laceration approximated, no known complications, infant and mother progressing well, [id number] immediately following delivery - General Info Date of Service: 04/30/20 Admission Dx/Problem (Free Text): Spontaneous labor augmented by pitocin, AROM - Patient Data Weight - Most Recent: 65.771 kg Lab Results Last 24 Hours: Laboratory Results - last 24 hr 04/30/20 04/30/20 04/30/20 Range/Units 10:05 10:05 10:05 WBC 13.66 H (4.0-11.0) K/uL RBC 4.08 L (4.30-5.90) M/uL Hgb 12.4 (12.0-16.0) g/dL Hct 37.2 (36.0-46.0) % MCV 91.2 (80.0-98.0) fL MCH 30.4 (27.0-32.0) pg MCHC 33.3 (31.0-37.0) g/dL RDW Std Deviation 45.0 (28.0-62.0) fl RDW Coeff of Maria Elena 14 (11.0-15.0) % Plt Count 203 (150-400) K/uL MPV 10.70 (7.40-12.00) fL Nucleated RBC % 0.0 /100WBC Nucleated RBCs # 0 K/uL Sodium 137 (136-145) mmol/L Potassium 2.9 L (3.5-5.1) mmol/L Chloride 101 (98-107) mmol/L Carbon Dioxide 24.0 (21.0-32.0) mmol/L BUN 4 L (7.0-18.0) mg/dL Creatinine 0.5 L (0.6-1.0) mg/dL Est Cr Clr Drug Dosing 124.15 mL/min Estimated GFR (MDRD) > 60.0 ml/min Glucose 66 L (74-106) mg/dL Calcium 8.0 L (8.5-10.1) mg/dL Total Bilirubin 0.4 (0.2-1.0) mg/dL AST 21 (15-37) IU/L ALT 17 (14-63) IU/L Alkaline Phosphatase 135 H (46-116) U/L Total Protein 5.8 L (6.4-8.2) g/dL Albumin 3.0 L (3.4-5.0) g/dL Globulin 2.8 (2.6-4.0) g/dL Albumin/Globulin Ratio 1.1 (0.9-1.6) COVID-19 ([facility]) (NEGATIVE) Blood Type O POSITIVE Antibody Screen NEGATIVE 04/30/20 Range/Units 10:10 WBC (4.0-11.0) K/uL RBC (4.30-5.90) M/uL Hgb (12.0-16.0) g/dL Hct (36.0-46.0) % MCV (80.0-98.0) fL MCH (27.0-32.0) pg MCHC (31.0-37.0) g/dL RDW Std Deviation (28.0-62.0) fl RDW Coeff of Maria Elena (11.0-15.0) % Plt Count (150-400) K/uL MPV (7.40-12.00) fL Nucleated RBC % /100WBC Nucleated RBCs # K/uL Sodium (136-145) mmol/L Potassium (3.5-5.1) mmol/L Chloride (98-107) mmol/L Carbon Dioxide (21.0-32.0) mmol/L BUN (7.0-18.0) mg/dL Creatinine (0.6-1.0) mg/dL Est Cr Clr Drug Dosing mL/min Estimated GFR (MDRD) ml/min Glucose (74-106) mg/dL Calcium (8.5-10.1) mg/dL Total Bilirubin (0.2-1.0) mg/dL AST (15-37) IU/L ALT (14-63) IU/L Alkaline Phosphatase (46-116) U/L Total Protein (6.4-8.2) g/dL Albumin (3.4-5.0) g/dL Globulin (2.6-4.0) g/dL Albumin/Globulin Ratio (0.9-1.6) COVID-19 ([facility]) NEGATIVE (NEGATIVE) Blood Type Antibody Screen Med Orders - Current: Current Medications Butorphanol Tartrate (Stadol) 1 mg IVPUSH Q1H PRN PRN Reason: Pain Carboprost Tromethamine (Hemabate Ds) 250 mcg IM ASDIRECTED PRN PRN Reason: Post Hemorrhage Lactated Ringer's (Ringers, Lactated) 1,000 mls @ 150 mls/hr IV ASDIRECTED RD Last Admin: 04/30/20 13:19 Dose: 150 mls/hr Documented by: Oxytocin/Sodium Chloride (Oxytocin 30 Unit/500 Ml-Ns) 30 unit in 500 mls @ 500 mls/hr IV TITRATE RD Tranexamic Acid 1,000 mg/ (Sodium Chloride) 110 mls @ 660 mls/hr IV ONETIME PRN PRN Reason: Bleeding Oxytocin/Sodium Chloride (Oxytocin 30 Unit/500 Ml-Ns) 30 unit in 500 mls @ 2 mls/hr IV TITRATE RD; Protocol Last Titration: 04/30/20 16:30 Dose: 8 munits/min, 8 mls/hr Documented by: Lidocaine HCl (Xylocaine 1%) 50 ml INJECT ONETIME PRN PRN Reason: Laceration repair Methylergonovine Maleate (Methergine) 0.2 mg IM ASDIRECTED PRN PRN Reason: Post Hemorrhage Misoprostol (Cytotec) 200 mcg PO ONETIME PRN PRN Reason: Post Hemorrhage Misoprostol (Cytotec) 25 mcg VAG ONETIME PRN PRN Reason: Cervical Ripening Misoprostol (Cytotec) 25 mcg VAG Q4H PRN PRN Reason: Cervical Ripening Nalbuphine HCl (Nubain) 10 mg IVPUSH Q1H PRN PRN Reason: Pain (severe 7-10) Sodium Chloride (Saline Flush) 10 ml FLUSH ASDIRECTED PRN PRN Reason: Keep Vein Open Sodium Chloride (Saline Flush) 2.5 ml FLUSH ASDIRECTED PRN PRN Reason: Keep Vein Open Sodium Chloride (Normal Saline) 10 ml IV ASDIRECTED PRN PRN Reason: IV Use Sterile Water (Sterile Water For Irrigation) 1,000 ml IRR ASDIRECTED PRN PRN Reason: delivery Terbutaline Sulfate (Brethine) 0.25 mg SUBCUT ASDIRECTED PRN PRN Reason: Tacysystole Discontinued Medications Fentanyl (Sublimaze) Confirm Administered Dose 100 mcg .ROUTE .STK-MED ONE Stop: 04/30/20 14:36 Fentanyl (Sublimaze) Confirm Administered Dose 100 mcg .ROUTE .STK-MED ONE Stop: 04/30/20 18:11 Oxytocin/Sodium Chloride (Oxytocin 30 Unit/500 Ml-Ns) Confirm Administered Dose 30 unit in 500 mls @ as directed .ROUTE .STK-MED ONE Stop: 04/30/20 12:37 Ropivacaine (Naropin 0.2%) Confirm Administered Dose 100 mls @ as directed .ROUTE .STK-MED ONE Stop: 04/30/20 14:36 - Problem List & Annotations (1) Vaginal delivery SNOMED Code(s): 375713471 Code(s): O80 - ENCOUNTER FOR FULL-TERM UNCOMPLICATED DELIVERY Status: Acute Current Visit: No - Problem List Review Problem List Initiated/Reviewed/Updated: Yes - Assessment Assessment:: 29 yo admitted for spontaneous labor s/p over a 2nd degree perineal laceration approximated, no known complications, progressing well - Plan Plan:: Admit for routine cares <Nathan Ritchie - Last Filed: 04/30/20 20:14> L & D Note - Delivery Note Nuchal Cord: Present Suture size: 2-0 (Monocryl) Second Stage Interventions: Reports: Pushing, Knee Chest Position, Pushing, Pulls Own Legs Back Delivery Comments (Free Text/Narrative):: Weight 3270g - Patient Data Lab Results Last 24 Hours: Laboratory Results - last 24 hr 04/30/20 04/30/20 04/30/20 Range/Units 10:05 10:05 10:05 WBC 13.66 H (4.0-11.0) K/uL RBC 4.08 L (4.30-5.90) M/uL Hgb 12.4 (12.0-16.0) g/dL Hct 37.2 (36.0-46.0) % MCV 91.2 (80.0-98.0) fL MCH 30.4 (27.0-32.0) pg MCHC 33.3 (31.0-37.0) g/dL RDW Std Deviation 45.0 (28.0-62.0) fl RDW Coeff of Maria Elena 14 (11.0-15.0) % Plt Count 203 (150-400) K/uL MPV 10.70 (7.40-12.00) fL Nucleated RBC % 0.0 /100WBC Nucleated RBCs # 0 K/uL Sodium 137 (136-145) mmol/L Potassium 2.9 L (3.5-5.1) mmol/L Chloride 101 (98-107) mmol/L Carbon Dioxide 24.0 (21.0-32.0) mmol/L BUN 4 L (7.0-18.0) mg/dL Creatinine 0.5 L (0.6-1.0) mg/dL Est Cr Clr Drug Dosing 124.15 mL/min Estimated GFR (MDRD) > 60.0 ml/min Glucose 66 L (74-106) mg/dL Calcium 8.0 L (8.5-10.1) mg/dL Total Bilirubin 0.4 (0.2-1.0) mg/dL AST 21 (15-37) IU/L ALT 17 (14-63) IU/L Alkaline Phosphatase 135 H (46-116) U/L Total Protein 5.8 L (6.4-8.2) g/dL Albumin 3.0 L (3.4-5.0) g/dL Globulin 2.8 (2.6-4.0) g/dL Albumin/Globulin Ratio 1.1 (0.9-1.6) COVID-19 ([facility]) (NEGATIVE) Blood Type O POSITIVE Antibody Screen NEGATIVE 04/30/20 Range/Units 10:10 WBC (4.0-11.0) K/uL RBC (4.30-5.90) M/uL Hgb (12.0-16.0) g/dL Hct (36.0-46.0) % MCV (80.0-98.0) fL MCH (27.0-32.0) pg MCHC (31.0-37.0) g/dL RDW Std Deviation (28.0-62.0) fl RDW Coeff of Maria Elena (11.0-15.0) % Plt Count (150-400) K/uL MPV (7.40-12.00) fL Nucleated RBC % /100WBC Nucleated RBCs # K/uL Sodium (136-145) mmol/L Potassium (3.5-5.1) mmol/L Chloride (98-107) mmol/L Carbon Dioxide (21.0-32.0) mmol/L BUN (7.0-18.0) mg/dL Creatinine (0.6-1.0) mg/dL Est Cr Clr Drug Dosing mL/min Estimated GFR (MDRD) ml/min Glucose (74-106) mg/dL Calcium (8.5-10.1) mg/dL Total Bilirubin (0.2-1.0) mg/dL AST (15-37) IU/L ALT (14-63) IU/L Alkaline Phosphatase (46-116) U/L Total Protein (6.4-8.2) g/dL Albumin (3.4-5.0) g/dL Globulin (2.6-4.0) g/dL Albumin/Globulin Ratio (0.9-1.6) COVID-19 ([facility]) NEGATIVE (NEGATIVE) Blood Type Antibody Screen Med Orders - Current: Current Medications Butorphanol Tartrate (Stadol) 1 mg IVPUSH Q1H PRN PRN Reason: Pain Carboprost Tromethamine (Hemabate Ds) 250 mcg IM ASDIRECTED PRN PRN Reason: Post Hemorrhage Lactated Ringer's (Ringers, Lactated) 1,000 mls @ 150 mls/hr IV ASDIRECTED RD Last Admin: 04/30/20 13:19 Dose: 150 mls/hr Documented by: Oxytocin/Sodium Chloride (Oxytocin 30 Unit/500 Ml-Ns) 30 unit in 500 mls @ 500 mls/hr IV TITRATE RD Tranexamic Acid 1,000 mg/ (Sodium Chloride) 110 mls @ 660 mls/hr IV ONETIME PRN PRN Reason: Bleeding Oxytocin/Sodium Chloride (Oxytocin 30 Unit/500 Ml-Ns) 30 unit in 500 mls @ 2 mls/hr IV TITRATE RD; Protocol Last Titration: 04/30/20 16:30 Dose: 8 munits/min, 8 mls/hr Documented by: Lidocaine HCl (Xylocaine 1%) 50 ml INJECT ONETIME PRN PRN Reason: Laceration repair Methylergonovine Maleate (Methergine) 0.2 mg IM ASDIRECTED PRN PRN Reason: Post Hemorrhage Misoprostol (Cytotec) 200 mcg PO ONETIME PRN PRN Reason: Post Hemorrhage Misoprostol (Cytotec) 25 mcg VAG ONETIME PRN PRN Reason: Cervical Ripening Misoprostol (Cytotec) 25 mcg VAG Q4H PRN PRN Reason: Cervical Ripening Nalbuphine HCl (Nubain) 10 mg IVPUSH Q1H PRN PRN Reason: Pain (severe 7-10) Sodium Chloride (Saline Flush) 10 ml FLUSH ASDIRECTED PRN PRN Reason: Keep Vein Open Sodium Chloride (Saline Flush) 2.5 ml FLUSH ASDIRECTED PRN PRN Reason: Keep Vein Open Sodium Chloride (Normal Saline) 10 ml IV ASDIRECTED PRN PRN Reason: IV Use Sterile Water (Sterile Water For Irrigation) 1,000 ml IRR ASDIRECTED PRN PRN Reason: delivery Terbutaline Sulfate (Brethine) 0.25 mg SUBCUT ASDIRECTED PRN PRN Reason: Tacysystole Discontinued Medications Fentanyl (Sublimaze) Confirm Administered Dose 100 mcg .ROUTE .STK-MED ONE Stop: 04/30/20 14:36 Fentanyl (Sublimaze) Confirm Administered Dose 100 mcg .ROUTE .STK-MED ONE Stop: 04/30/20 18:11 Oxytocin/Sodium Chloride (Oxytocin 30 Unit/500 Ml-Ns) Confirm Administered Dose 30 unit in 500 mls @ as directed .ROUTE .STK-MED ONE Stop: 04/30/20 12:37 Ropivacaine (Naropin 0.2%) Confirm Administered Dose 100 mls @ as directed .ROUTE .STK-MED ONE Stop: 04/30/20 14:36 - Problem List & Annotations (1) Vaginal delivery SNOMED Code(s): 774390234 Code(s): O80 - ENCOUNTER FOR FULL-TERM UNCOMPLICATED DELIVERY Status: Acute Current Visit: No - My Orders Last 24 Hours: My Active Orders 04/30/20 09:27 Non Stress Test [RC] PER UNIT ROUTINE Up ad Zara [RC] ASDIRECTED Vaginal Exam [RC] Click to Edit Vital Signs [RC] PER UNIT ROUTINE Resuscitation Status Routine 04/30/20 09:38 Butorphanol [Stadol] 1 mg IVPUSH Q1H PRN Carboprost Tromethamine [Hemabate DS] 250 mcg IM ASDIRECTED PRN Lidocaine 1% [Xylocaine 1%] 50 ml INJECT ONETIME PRN Methylergonovine [Methergine] 0.2 mg IM ASDIRECTED PRN Nalbuphine [Nubain] 10 mg IVPUSH Q1H PRN Sodium Chloride 0.9% [Normal Saline] 10 ml IV ASDIRECTED PRN Sodium Chloride 0.9% [Saline Flush] 10 ml FLUSH ASDIRECTED PRN Sodium Chloride 0.9% [Saline Flush] 2.5 ml FLUSH ASDIRECTED PRN Tranexamic Acid [Cyklokapron] 1,000 mg Sodium Chloride 0.9% [Normal Saline] 100 ml IV ONETIME Water For Irrigation,Sterile [Sterile Water for Irrigation] 1,000 ml IRR ASDIRECTED PRN miSOPROStoL [Cytotec] 200 mcg PO ONETIME PRN 04/30/20 09:39 Heart Tones [RC] CONTINUOUS Notify Provider [RC] PRN Peripheral IV Insertion Adult [OM.PC] Routine 04/30/20 09:40 Bedrest Bathroom Privileges [RC] ASDIRECTED Communication Order [RC] ASDIRECTED Communication Order [RC] ASDIRECTED Communication Order [RC] ASDIRECTED Notify Provider [RC] PRN Notify Provider [RC] PRN Notify Provider [RC] STAT Vaginal Exam [RC] PRN Terbutaline [Brethine] 0.25 mg SUBCUT ASDIRECTED PRN miSOPROStoL [Cytotec] 25 mcg VAG ONETIME PRN miSOPROStoL [Cytotec] 25 mcg VAG Q4H PRN 04/30/20 09:45 Lactated Ringers [Ringers, Lactated] 1,000 ml IV ASDIRECTED Oxytocin/0.9 % Sodium Chloride [Oxytocin 30 Unit/500 ML-NS] 30 unit in 500 ml IV TITRATE Oxytocin/0.9 % Sodium Chloride [Oxytocin 30 Unit/500 ML-NS] 30 unit in 500 ml IV TITRATE Medication Administration Instruction [OM.PC] Q3H 04/30/20 09:58 Admission Status [Patient Status] [ADT] Routine Patient Status [ADT] Routine 04/30/20 10:05 RPR (SYPHILIS SERO) W/ RFLX [REF] Routine
[2020-04-30] MEDS ORDERED: Lanolin 100% Cream 7 GM Tube TOP PRN (20:15)
[2020-04-30] MEDS ORDERED: Witch Hazel Medicated Pads 40/Jar TOP PRN (20:15)
[2020-04-30] MEDS ORDERED: Ibuprofen 400 MG Tab PO PRN (20:15)
[2020-04-30] MEDS ORDERED: Bisacodyl 10 MG Supp RECTAL PRN (20:15)
[2020-04-30] MEDS ORDERED: Acetaminophen 500 MG Tab PO PRN (20:15)
[2020-04-30] MEDS ORDERED: oxyCODONE 5 MG Tab PO PRN (20:15)
[2020-04-30] MEDS ORDERED: Benzocaine/Menthol 20%-0.5% Spray 78 GM Cannister TOP PRN (20:15)
[2020-04-30] MEDS ORDERED: Docusate Sodium 100 MG Cap PO PRN (20:15)
[2020-04-30] MEDS: Potassium Chloride 20 MEQ Tab.ER PO SCH (22:04)
[2020-04-30] MEDS: Ibuprofen 800 MG Tab PO PRN (22:05)
[2020-05-01] MEDS: Acetaminophen 500 MG Tab PO PRN ×2 (01:44→20:26)
[2020-05-01] MEDS: Ibuprofen 800 MG Tab PO PRN ×3 (09:15→20:25)
--- NOTE | 2020-05-01 10:13 | PCM.PNPP ---
<Gary Castillo - Last Filed: 05/01/20 10:18> - General Info Date of Service: 05/01/20 Admission Dx/Problem (Free Text): Spontaneous labor augmented by pitocin, AROM Subjective Update: Patient feeling, reports perineal pain and swelling this am rated at an 8/10, improving after dose of Motrin this am, ambulating, urinating, passing gas, no bowel movement yet, tolerating diet, baby latching well, mom yet to have milk come in Functional Status: Reports: Pain Controlled, Tolerating Diet, Ambulating, Urinating Pain Score: 8 - Review of Systems General: Reports: No Symptoms HEENT: Reports: No Symptoms Pulmonary: Reports: No Symptoms Cardiovascular: Reports: No Symptoms Gastrointestinal: Reports: No Symptoms Genitourinary: Reports: No Symptoms Musculoskeletal: Reports: No Symptoms Skin: Reports: No Symptoms Neurological: Reports: No Symptoms Psychiatric: Reports: No Symptoms - General Info Date of Service: 05/01/20 - Patient Data Vital Signs - Most Recent: Last Vital Signs Temp 98.2 F 05/01/20 08:30 Pulse 74 05/01/20 08:30 Resp 19 05/01/20 08:30 BP 136/86 05/01/20 08:30 Pulse Ox 98 05/01/20 08:30 Weight - Most Recent: 65.771 kg Lab Results - Last 24 Hours: Laboratory Results - last 24 hr 04/30/20 04/30/20 04/30/20 Range/Units 10:05 10:05 10:05 WBC 13.66 H (4.0-11.0) K/uL RBC 4.08 L (4.30-5.90) M/uL Hgb 12.4 (12.0-16.0) g/dL Hct 37.2 (36.0-46.0) % MCV 91.2 (80.0-98.0) fL MCH 30.4 (27.0-32.0) pg MCHC 33.3 (31.0-37.0) g/dL RDW Std Deviation 45.0 (28.0-62.0) fl RDW Coeff of Maria Elena 14 (11.0-15.0) % Plt Count 203 (150-400) K/uL MPV 10.70 (7.40-12.00) fL Nucleated RBC % 0.0 /100WBC Nucleated RBCs # 0 K/uL Sodium 137 (136-145) mmol/L Potassium 2.9 L (3.5-5.1) mmol/L Chloride 101 (98-107) mmol/L Carbon Dioxide 24.0 (21.0-32.0) mmol/L BUN 4 L (7.0-18.0) mg/dL Creatinine 0.5 L (0.6-1.0) mg/dL Est Cr Clr Drug Dosing 124.15 mL/min Estimated GFR (MDRD) > 60.0 ml/min Glucose 66 L (74-106) mg/dL Calcium 8.0 L (8.5-10.1) mg/dL Total Bilirubin 0.4 (0.2-1.0) mg/dL AST 21 (15-37) IU/L ALT 17 (14-63) IU/L Alkaline Phosphatase 135 H (46-116) U/L Total Protein 5.8 L (6.4-8.2) g/dL Albumin 3.0 L (3.4-5.0) g/dL Globulin 2.8 (2.6-4.0) g/dL Albumin/Globulin Ratio 1.1 (0.9-1.6) Ur Random Creatinine mg/dL U Random Total Protein (<11.9) mg/dL Protein/Creatinin Ratio COVID-19 ([facility]I) (NEGATIVE) Blood Type O POSITIVE Antibody Screen NEGATIVE 04/30/20 04/30/20 05/01/20 Range/Units 10:10 22:20 06:05 WBC (4.0-11.0) K/uL RBC (4.30-5.90) M/uL Hgb 12.1 (12.0-16.0) g/dL Hct 36.3 (36.0-46.0) % MCV (80.0-98.0) fL MCH (27.0-32.0) pg MCHC (31.0-37.0) g/dL RDW Std Deviation (28.0-62.0) fl RDW Coeff of Maria Elena (11.0-15.0) % Plt Count (150-400) K/uL MPV (7.40-12.00) fL Nucleated RBC % /100WBC Nucleated RBCs # K/uL Sodium (136-145) mmol/L Potassium (3.5-5.1) mmol/L Chloride (98-107) mmol/L Carbon Dioxide (21.0-32.0) mmol/L BUN (7.0-18.0) mg/dL Creatinine (0.6-1.0) mg/dL Est Cr Clr Drug Dosing mL/min Estimated GFR (MDRD) ml/min Glucose (74-106) mg/dL Calcium (8.5-10.1) mg/dL Total Bilirubin (0.2-1.0) mg/dL AST (15-37) IU/L ALT (14-63) IU/L Alkaline Phosphatase (46-116) U/L Total Protein (6.4-8.2) g/dL Albumin (3.4-5.0) g/dL Globulin (2.6-4.0) g/dL Albumin/Globulin Ratio (0.9-1.6) Ur Random Creatinine 18.2 mg/dL U Random Total Protein 11.8 (<11.9) mg/dL Protein/Creatinin Ratio 0.6 COVID-19 ([facility]ORI) NEGATIVE (NEGATIVE) Blood Type Antibody Screen Med Orders - Current: Current Medications Acetaminophen (Tylenol Extra Strength) 500 mg PO Q4H PRN PRN Reason: Pain Acetaminophen (Tylenol Extra Strength) 1,000 mg PO Q4H PRN PRN Reason: Pain Last Admin: 05/01/20 01:44 Dose: 1,000 mg Documented by: Benzocaine/Menthol (Dermoplast Pain Relief 20%-0.5% [place]) 0 gm TOP ASDIRECTED PRN PRN Reason: Perineal Comfort Measure Bisacodyl (Dulcolax) 10 mg RECTAL ONETIME PRN PRN Reason: Constipation Butorphanol Tartrate (Stadol) 1 mg IVPUSH Q1H PRN PRN Reason: Pain Carboprost Tromethamine (Hemabate Ds) 250 mcg IM ASDIRECTED PRN PRN Reason: Post Hemorrhage Docusate Sodium (Colace) 100 mg PO BID PRN PRN Reason: Constipation Last Admin: 05/01/20 09:14 Dose: 100 mg Documented by: Emollient Ointment (Lansinoh Hpa) 0 gm TOP ASDIRECTED PRN PRN Reason: Sore Nipples Last Admin: 04/30/20 22:04 Dose: 1 applicful Documented by: Lactated Ringer's (Ringers, Lactated) 1,000 mls @ 150 mls/hr IV ASDIRECTED [facility] Last Admin: 04/30/20 13:19 Dose: 150 mls/hr Documented by: Oxytocin/Sodium Chloride (Oxytocin 30 Unit/500 Ml-Ns) 30 unit in 500 mls @ 500 mls/hr IV TITRATE RD Tranexamic Acid 1,000 mg/ (Sodium Chloride) 110 mls @ 660 mls/hr IV ONETIME PRN PRN Reason: Bleeding Oxytocin/Sodium Chloride (Oxytocin 30 Unit/500 Ml-Ns) 30 unit in 500 mls @ 2 mls/hr IV TITRATE [facility]; Protocol Last Titration: 04/30/20 16:30 Dose: 8 munits/min, 8 mls/hr Documented by: Ibuprofen (Motrin) 400 mg PO Q4H PRN PRN Reason: Pain Ibuprofen (Motrin) 800 mg PO Q6H PRN PRN Reason: Pain Last Admin: 05/01/20 09:15 Dose: 800 mg Documented by: Lidocaine HCl (Xylocaine 1%) 50 ml INJECT ONETIME PRN PRN Reason: Laceration repair Last Admin: 04/30/20 22:03 Dose: 50 ml Documented by: Methylergonovine Maleate (Methergine) 0.2 mg IM ASDIRECTED PRN PRN Reason: Post Hemorrhage Misoprostol (Cytotec) 200 mcg PO ONETIME PRN PRN Reason: Post Hemorrhage Misoprostol (Cytotec) 25 mcg VAG ONETIME PRN PRN Reason: Cervical Ripening Misoprostol (Cytotec) 25 mcg VAG Q4H PRN PRN Reason: Cervical Ripening Nalbuphine HCl (Nubain) 10 mg IVPUSH Q1H PRN PRN Reason: Pain (severe 7-10) Oxycodone HCl (Oxycodone) 5 mg PO Q2H PRN PRN Reason: Pain Potassium Chloride (Klor-Con M20) 20 meq PO TID [facility] Last Admin: 04/30/20 22:04 Dose: 20 meq Documented by: Sodium Chloride (Saline Flush) 10 ml FLUSH ASDIRECTED PRN PRN Reason: Keep Vein Open Sodium Chloride (Saline Flush) 2.5 ml FLUSH ASDIRECTED PRN PRN Reason: Keep Vein Open Sodium Chloride (Normal Saline) 10 ml IV ASDIRECTED PRN PRN Reason: IV Use Sterile Water (Sterile Water For Irrigation) 1,000 ml IRR ASDIRECTED PRN PRN Reason: delivery Terbutaline Sulfate (Brethine) 0.25 mg SUBCUT ASDIRECTED PRN PRN Reason: Tacysystole Francisco Jane (Tucks) 1 pad TOP ASDIRECTED PRN PRN Reason: comfort care Last Admin: 04/30/20 22:03 Dose: 1 applic Documented by: Discontinued Medications Fentanyl (Sublimaze) Confirm Administered Dose 100 mcg .ROUTE .STK-MED ONE Stop: 04/30/20 14:36 Fentanyl (Sublimaze) Confirm Administered Dose 100 mcg .ROUTE .STK-MED ONE Stop: 04/30/20 18:11 Oxytocin/Sodium Chloride (Oxytocin 30 Unit/500 Ml-Ns) Confirm Administered Dose 30 unit in 500 mls @ as directed .ROUTE .STK-MED ONE Stop: 04/30/20 12:37 Ropivacaine (Naropin 0.2%) Confirm Administered Dose 100 mls @ as directed .ROUTE .STK-MED ONE Stop: 04/30/20 14:36 - Infant Interaction Disposition, : [place] in Room with Family Infant Interaction: Holding Infant Infant Feeding: Attempted ; Nursed Fair/Poor Support Person: , Friend - Recovery Exam Fundal Tone: Firm Fundal Level: At Umbilicus Fundal Placement: Midline Lochia Amount: Scant Lochia Color: Rubra/Red Perineum Description: Intact, Minimal Bruising/Swelling Episiotomy/Laceration: Approximated Bladder Status: Voiding - Exam General: Alert, Oriented HEENT: Pupils Equal Neck: Supple Lungs: Clear to Auscultation, Normal Respiratory Effort Cardiovascular: Regular Rate, Regular Rhythm GI/Abdominal Exam: Normal Bowel Sounds, Soft, Non-Tender, No Organomegaly, No Distention, No Abnormal Bruit, No Mass, Pelvis Stable Extremities: Normal Inspection, Normal Range of Motion, Non-Tender, No Pedal Edema, Normal Capillary Refill Skin: Warm, Dry, Intact Wound/Incisions: Healing Well Neurological: No New Focal Deficit Psy/Mental Status: Alert, Normal Affect, Normal Mood - Problem List & Annotations (1) Vaginal delivery SNOMED Code(s): 712015096 Code(s): O80 - ENCOUNTER FOR FULL-TERM UNCOMPLICATED DELIVERY Status: Acute Current Visit: No - Problem List Review Problem List Initiated/Reviewed/Updated: Yes - Assessment Assessment:: 29 yo admitted for spontaneous labor s/p , PPD1, 2nd degree perineal laceration approximated, progressing well - Plan Plan:: 1. Routine cares 2. GBS negative 3. Rubella immune 4. O positive, antibody negative 5. Diet as tolerated 6. PRN Motrin for pain 7. PRN colace 8. Discharge home at 24 hours 9. Discharge instructions to be given at bedside 10. Pevlic rest x6 weeks 11. Follow-up in 6 weeks <Nathan Ritchie - Last Filed: 05/01/20 11:19> - General Info Admission Dx/Problem (Free Text): 29yo P2 s/p PPD1 , ambulating , voiding and tolerating and breast and bottle feeding - Patient Data Vital Signs - Most Recent: Last Vital Signs Temp 36.8 C 05/01/20 08:30 Pulse 74 05/01/20 08:30 Resp 19 05/01/20 08:30 BP 136/86 05/01/20 08:30 Pulse Ox 98 05/01/20 08:30 Lab Results - Last 24 Hours: Laboratory Results - last 24 hr 04/30/20 04/30/20 04/30/20 Range/Units 10:05 10:10 22:20 Hgb (12.0-16.0) g/dL Hct (36.0-46.0) % Sodium 137 (136-145) mmol/L Potassium 2.9 L (3.5-5.1) mmol/L Chloride 101 (98-107) mmol/L Carbon Dioxide 24.0 (21.0-32.0) mmol/L BUN 4 L (7.0-18.0) mg/dL Creatinine 0.5 L (0.6-1.0) mg/dL Est Cr Clr Drug Dosing 124.15 mL/min Estimated GFR (MDRD) > 60.0 ml/min Glucose 66 L (74-106) mg/dL Calcium 8.0 L (8.5-10.1) mg/dL Total Bilirubin 0.4 (0.2-1.0) mg/dL AST 21 (15-37) IU/L ALT 17 (14-63) IU/L Alkaline Phosphatase 135 H (46-116) U/L Total Protein 5.8 L (6.4-8.2) g/dL Albumin 3.0 L (3.4-5.0) g/dL Globulin 2.8 (2.6-4.0) g/dL Albumin/Globulin Ratio 1.1 (0.9-1.6) Ur Random Creatinine 18.2 mg/dL U Random Total Protein 11.8 (<11.9) mg/dL Protein/Creatinin Ratio 0.6 COVID-19 ([facility]I) NEGATIVE (NEGATIVE) 05/01/20 Range/Units 06:05 Hgb 12.1 (12.0-16.0) g/dL Hct 36.3 (36.0-46.0) % Sodium (136-145) mmol/L Potassium (3.5-5.1) mmol/L Chloride (98-107) mmol/L Carbon Dioxide (21.0-32.0) mmol/L BUN (7.0-18.0) mg/dL Creatinine (0.6-1.0) mg/dL Est Cr Clr Drug Dosing mL/min Estimated GFR (MDRD) ml/min Glucose (74-106) mg/dL Calcium (8.5-10.1) mg/dL Total Bilirubin (0.2-1.0) mg/dL AST (15-37) IU/L ALT (14-63) IU/L Alkaline Phosphatase (46-116) U/L Total Protein (6.4-8.2) g/dL Albumin (3.4-5.0) g/dL Globulin (2.6-4.0) g/dL Albumin/Globulin Ratio (0.9-1.6) Ur Random Creatinine mg/dL U Random Total Protein (<11.9) mg/dL Protein/Creatinin Ratio COVID-19 ([facility]ORI) (NEGATIVE) Med Orders - Current: Current Medications Acetaminophen (Tylenol Extra Strength) 500 mg PO Q4H PRN PRN Reason: Pain Acetaminophen (Tylenol Extra Strength) 1,000 mg PO Q4H PRN PRN Reason: Pain Last Admin: 05/01/20 01:44 Dose: 1,000 mg Documented by: Benzocaine/Menthol (Dermoplast Pain Relief 20%-0.5% [place]) 0 gm TOP ASDIRECTED PRN PRN Reason: Perineal Comfort Measure Bisacodyl (Dulcolax) 10 mg RECTAL ONETIME PRN PRN Reason: Constipation Butorphanol Tartrate (Stadol) 1 mg IVPUSH Q1H PRN PRN Reason: Pain Carboprost Tromethamine (Hemabate Ds) 250 mcg IM ASDIRECTED PRN PRN Reason: Post Hemorrhage Docusate Sodium (Colace) 100 mg PO BID PRN PRN Reason: Constipation Last Admin: 05/01/20 09:14 Dose: 100 mg Documented by: Emollient Ointment (Lansinoh Hpa) 0 gm TOP ASDIRECTED PRN PRN Reason: Sore Nipples Last Admin: 04/30/20 22:04 Dose: 1 applicful Documented by: Lactated Ringer's (Ringers, Lactated) 1,000 mls @ 150 mls/hr IV ASDIRECTED DR Last Admin: 04/30/20 13:19 Dose: 150 mls/hr Documented by: Oxytocin/Sodium Chloride (Oxytocin 30 Unit/500 Ml-Ns) 30 unit in 500 mls @ 500 mls/hr IV TITRATE RD Tranexamic Acid 1,000 mg/ (Sodium Chloride) 110 mls @ 660 mls/hr IV ONETIME PRN PRN Reason: Bleeding Oxytocin/Sodium Chloride (Oxytocin 30 Unit/500 Ml-Ns) 30 unit in 500 mls @ 2 mls/hr IV TITRATE RD; Protocol Last Titration: 04/30/20 16:30 Dose: 8 munits/min, 8 mls/hr Documented by: Ibuprofen (Motrin) 400 mg PO Q4H PRN PRN Reason: Pain Ibuprofen (Motrin) 800 mg PO Q6H PRN PRN Reason: Pain Last Admin: 05/01/20 09:15 Dose: 800 mg Documented by: Lidocaine HCl (Xylocaine 1%) 50 ml INJECT ONETIME PRN PRN Reason: Laceration repair Last Admin: 04/30/20 22:03 Dose: 50 ml Documented by: Methylergonovine Maleate (Methergine) 0.2 mg IM ASDIRECTED PRN PRN Reason: Post Hemorrhage Misoprostol (Cytotec) 200 mcg PO ONETIME PRN PRN Reason: Post Hemorrhage Misoprostol (Cytotec) 25 mcg VAG ONETIME PRN PRN Reason: Cervical Ripening Misoprostol (Cytotec) 25 mcg VAG Q4H PRN PRN Reason: Cervical Ripening Nalbuphine HCl (Nubain) 10 mg IVPUSH Q1H PRN PRN Reason: Pain (severe 7-10) Oxycodone HCl (Oxycodone) 5 mg PO Q2H PRN PRN Reason: Pain Potassium Chloride (Klor-Con M20) 20 meq PO TID [facility] Last Admin: 04/30/20 22:04 Dose: 20 meq Documented by: Sodium Chloride (Saline Flush) 10 ml FLUSH ASDIRECTED PRN PRN Reason: Keep Vein Open Sodium Chloride (Saline Flush) 2.5 ml FLUSH ASDIRECTED PRN PRN Reason: Keep Vein Open Sodium Chloride (Normal Saline) 10 ml IV ASDIRECTED PRN PRN Reason: IV Use Sterile Water (Sterile Water For Irrigation) 1,000 ml IRR ASDIRECTED PRN PRN Reason: delivery Terbutaline Sulfate (Brethine) 0.25 mg SUBCUT ASDIRECTED PRN PRN Reason: Tacysystole Witch Lucinda (Tucks) 1 pad TOP ASDIRECTED PRN PRN Reason: comfort care Last Admin: 04/30/20 22:03 Dose: 1 applic Documented by: Discontinued Medications Fentanyl (Sublimaze) Confirm Administered Dose 100 mcg .ROUTE .STK-MED ONE Stop: 04/30/20 14:36 Fentanyl (Sublimaze) Confirm Administered Dose 100 mcg .ROUTE .STK-MED ONE Stop: 04/30/20 18:11 Oxytocin/Sodium Chloride (Oxytocin 30 Unit/500 Ml-Ns) Confirm Administered Dose 30 unit in 500 mls @ as directed .ROUTE .STK-MED ONE Stop: 04/30/20 12:37 Ropivacaine (Naropin 0.2%) Confirm Administered Dose 100 mls @ as directed .ROUTE .STK-MED ONE Stop: 04/30/20 14:36 - Exam Wound/Incisions: Healing Well - Problem List & Annotations (1) Vaginal delivery SNOMED Code(s): 857589762 Code(s): O80 - ENCOUNTER FOR FULL-TERM UNCOMPLICATED DELIVERY Status: Acute Current Visit: No - Problem List Review Problem List Initiated/Reviewed/Updated: Yes - My Orders Last 24 Hours: My Active Orders 04/30/20 20:15 Patient Status [ADT] Routine May Shower [RC] ASDIRECTED Up ad Zara [RC] ASDIRECTED Vital Signs [RC] PER UNIT ROUTINE Acetaminophen [Tylenol Extra Strength] 1,000 mg PO Q4H PRN Acetaminophen [Tylenol Extra Strength] 500 mg PO Q4H PRN Benzocaine/Menthol [Dermoplast Pain Relief 20%-0.5% [place]] 0 gm TOP ASDIRECTED PRN Docusate Sodium [Colace] 100 mg PO BID PRN Ibuprofen [Motrin] 400 mg PO Q4H PRN Ibuprofen [Motrin] 800 mg PO Q6H PRN Lanolin [Lansinoh HPA] See Dose Instructions TOP ASDIRECTED PRN bisacodyL [Dulcolax] 10 mg RECTAL ONETIME PRN oxyCODONE 5 mg PO Q2H PRN witch Lucinda [Tucks] 1 pad TOP ASDIRECTED PRN Assess Lochia [WOMSER] Per Unit Routine Assess Uterine Involution [WOMSER] Per Unit Routine Peripheral IV Discontinue [OM.PC] Routine Resuscitation Status Routine 04/30/20 22:00 Potassium Chloride [Klor-Con M20] 20 meq PO TID - Plan Plan:: Agree with plan
[2020-05-01] MEDS: Potassium Chloride 20 MEQ Tab.ER PO SCH ×2 (14:58→21:30)
[2020-05-01] MEDS ORDERED: Labetalol 100 MG/20 ML MDV IVPUSH ONE (22:17)
[2020-05-01] MEDS ORDERED: Magnesium Sulfate/Water 4 GM in Premix Bag 1 BAG IV ONE ×2 (22:46→23:03)
[2020-05-01] MEDS ORDERED: Sodium Chloride 0.9% 10 ML Syringe FLUSH PRN (23:03)
[2020-05-01] MEDS ORDERED: Sodium Chloride 0.9% 2.5 ML Syringe FLUSH PRN (23:03)
[2020-05-01] MEDS ORDERED: Sodium Chloride 0.9% 10 ML SDV IV PRN (23:03)
[2020-05-01] MEDS ORDERED: Calcium Gluconate 10% 1 GM/10 ML SDV IVPUSH PRN (23:03)
[2020-05-01 23:11] LABS: BLOOD UREA NITROGEN,BUN 7 mg/dL (7.0-18.0); CARBON DIOXIDE,CO2 27.8 mmol/L (21.0-32.0); CHLORIDE,CL 104 mmol/L (98-107); GLUCOSE RANDOM 88 mg/dL (74-106); POTASSIUM,K 2.9 mmol/L (3.5-5.1); SODIUM,NA 139 mmol/L (136-145)
[2020-05-02] MEDS: Magnesium Sulfate/Water 20 GM/500 ML BAG IV SCH ×3 (00:26→19:39)
[2020-05-02] MEDS: hydrOXYzine Pamoate 25 MG Cap PO PRN (00:52)
[2020-05-02] MEDS: Acetaminophen 500 MG Tab PO PRN ×3 (04:35→19:36)
[2020-05-02] MEDS: Ibuprofen 800 MG Tab PO PRN (04:35)
[2020-05-02] MEDS ORDERED: Labetalol 100 MG/20 ML MDV IVPUSH ONE (05:30)
[2020-05-02] MEDS ORDERED: Labetalol 100 MG Tab ONE (06:53)
[2020-05-02] MEDS: Potassium Chloride 20 MEQ Tab.ER PO SCH ×3 (06:56→22:35)
--- NOTE | 2020-05-02 08:45 | PCM.PNPP ---
- General Info Date of Service: 05/02/20 Admission Dx/Problem (Free Text): 29yo P2 s/p PPD2 on magnesium for blood pressures intrapartum and >150-160s systolic Subjective Update: Ambulating to bathroom, voiding, on mag, clear liquids, reports headache this am and one episode of double vision, pain controlled, patient is "sleepy" this am Functional Status: Reports: Pain Controlled, Ambulating, Urinating Pain Score: 3 - Review of Systems General: Reports: No Symptoms HEENT: Reports: No Symptoms Pulmonary: Reports: No Symptoms Cardiovascular: Reports: No Symptoms, Orthopnea Genitourinary: Reports: No Symptoms Musculoskeletal: Reports: No Symptoms Skin: Reports: No Symptoms Neurological: Reports: No Symptoms Psychiatric: Reports: No Symptoms - Patient Data Vital Signs - Most Recent: Last Vital Signs Temp 98.1 F 05/02/20 04:00 Pulse 81 05/02/20 06:56 Resp 20 05/02/20 04:00 BP 156/91 H 05/02/20 06:56 Pulse Ox 98 05/02/20 04:00 Weight - Most Recent: 145 lb 0.004 oz I&O - Last 24 Hours: Intake & Output 05/01/20 05/02/20 05/02/20 22:59 06:59 14:59 Output Total 4000 Balance -4000 Lab Results - Last 24 Hours: Laboratory Results - last 24 hr 05/01/20 05/01/20 05/01/20 Range/Units 22:48 22:48 22:48 WBC 13.32 H (4.0-11.0) K/uL RBC 3.71 L (4.30-5.90) M/uL Hgb 11.3 L (12.0-16.0) g/dL Hct 34.1 L (36.0-46.0) % MCV 91.9 (80.0-98.0) fL MCH 30.5 (27.0-32.0) pg MCHC 33.1 (31.0-37.0) g/dL RDW Std Deviation 46.2 (28.0-62.0) fl RDW Coeff of Maria Elena 14 (11.0-15.0) % Plt Count 199 (150-400) K/uL MPV 10.20 (7.40-12.00) fL Neut % (Auto) 73.9 (48.0-80.0) % Lymph % (Auto) 19.4 (16.0-40.0) % Maury % (Auto) 5.3 (0.0-15.0) % Eos % (Auto) 1.1 (0.0-7.0) % Baso % (Auto) 0.3 (0.0-1.5) % Neut # (Auto) 9.8 H (1.4-5.7) K/uL Lymph # (Auto) 2.6 H (0.6-2.4) K/uL Maury # (Auto) 0.7 (0.0-0.8) K/uL Eos # (Auto) 0.2 (0.0-0.7) K/uL Baso # (Auto) 0.0 (0.0-0.1) K/uL Nucleated RBC % 0.0 /100WBC Nucleated RBCs # 0 K/uL Sodium 139 (136-145) mmol/L Potassium 2.9 L (3.5-5.1) mmol/L Chloride 104 (98-107) mmol/L Carbon Dioxide 27.8 (21.0-32.0) mmol/L BUN 7 (7.0-18.0) mg/dL Creatinine 0.6 (0.6-1.0) mg/dL Est Cr Clr Drug Dosing 103.46 mL/min Estimated GFR (MDRD) > 60.0 ml/min Glucose 88 (74-106) mg/dL Uric Acid 4.5 (2.6-7.2) mg/dL Calcium 8.2 L (8.5-10.1) mg/dL Magnesium 1.5 L (1.8-2.4) mg/dL Total Bilirubin 0.2 (0.2-1.0) mg/dL AST 18 (15-37) IU/L ALT 13 L (14-63) IU/L Alkaline Phosphatase 99 (46-116) U/L Total Protein 5.4 L (6.4-8.2) g/dL Albumin 2.5 L (3.4-5.0) g/dL Globulin 2.9 (2.6-4.0) g/dL Albumin/Globulin Ratio 0.9 (0.9-1.6) 08/17/20 Range/Units 04:05 WBC (4.0-11.0) K/uL RBC (4.30-5.90) M/uL Hgb (12.0-16.0) g/dL Hct (36.0-46.0) % MCV (80.0-98.0) fL MCH (27.0-32.0) pg MCHC (31.0-37.0) g/dL RDW Std Deviation (28.0-62.0) fl RDW Coeff of Maria Elena (11.0-15.0) % Plt Count (150-400) K/uL MPV (7.40-12.00) fL Neut % (Auto) (48.0-80.0) % Lymph % (Auto) (16.0-40.0) % Maury % (Auto) (0.0-15.0) % Eos % (Auto) (0.0-7.0) % Baso % (Auto) (0.0-1.5) % Neut # (Auto) (1.4-5.7) K/uL Lymph # (Auto) (0.6-2.4) K/uL Maury # (Auto) (0.0-0.8) K/uL Eos # (Auto) (0.0-0.7) K/uL Baso # (Auto) (0.0-0.1) K/uL Nucleated RBC % /100WBC Nucleated RBCs # K/uL Sodium (136-145) mmol/L Potassium (3.5-5.1) mmol/L Chloride (98-107) mmol/L Carbon Dioxide (21.0-32.0) mmol/L BUN (7.0-18.0) mg/dL Creatinine (0.6-1.0) mg/dL Est Cr Clr Drug Dosing mL/min Estimated GFR (MDRD) ml/min Glucose (74-106) mg/dL Uric Acid (2.6-7.2) mg/dL Calcium (8.5-10.1) mg/dL Magnesium 4.6 H (1.8-2.4) mg/dL Total Bilirubin (0.2-1.0) mg/dL AST (15-37) IU/L ALT (14-63) IU/L Alkaline Phosphatase (46-116) U/L Total Protein (6.4-8.2) g/dL Albumin (3.4-5.0) g/dL Globulin (2.6-4.0) g/dL Albumin/Globulin Ratio (0.9-1.6) Med Orders - Current: Current Medications Acetaminophen (Tylenol Extra Strength) 500 mg PO Q4H PRN PRN Reason: Pain Acetaminophen (Tylenol Extra Strength) 1,000 mg PO Q4H PRN PRN Reason: Pain Last Admin: 05/02/20 04:35 Dose: 1,000 mg Documented by: Benzocaine/Menthol (Dermoplast Pain Relief 20%-0.5% [place]) 0 gm TOP ASDIRECTED PRN PRN Reason: Perineal Comfort Measure Bisacodyl (Dulcolax) 10 mg RECTAL ONETIME PRN PRN Reason: Constipation Butorphanol Tartrate (Stadol) 1 mg IVPUSH Q1H PRN PRN Reason: Pain Calcium Gluconate (Calcium Gluconate) 1 gm IVPUSH ASDIRECTED PRN PRN Reason: respiratory distress Carboprost Tromethamine (Hemabate Ds) 250 mcg IM ASDIRECTED PRN PRN Reason: Post Hemorrhage Docusate Sodium (Colace) 100 mg PO BID PRN PRN Reason: Constipation Last Admin: 05/01/20 09:14 Dose: 100 mg Documented by: Emollient Ointment (Lansinoh Hpa) 0 gm TOP ASDIRECTED PRN PRN Reason: Sore Nipples Last Admin: 04/30/20 22:04 Dose: 1 applicful Documented by: Hydroxyzine Pamoate (Vistaril) 50 mg PO BEDTIME PRN PRN Reason: Insomnia Last Admin: 05/02/20 00:52 Dose: 50 mg Documented by: Lactated Ringer's (Ringers, Lactated) 1,000 mls @ 150 mls/hr IV ASDIRECTED RD Last Admin: 04/30/20 13:19 Dose: 150 mls/hr Documented by: Oxytocin/Sodium Chloride (Oxytocin 30 Unit/500 Ml-Ns) 30 unit in 500 mls @ 500 mls/hr IV TITRATE RD Tranexamic Acid 1,000 mg/ (Sodium Chloride) 110 mls @ 660 mls/hr IV ONETIME PRN PRN Reason: Bleeding Oxytocin/Sodium Chloride (Oxytocin 30 Unit/500 Ml-Ns) 30 unit in 500 mls @ 2 mls/hr IV TITRATE [facility]; Protocol Last Titration: 04/30/20 16:30 Dose: 8 munits/min, 8 mls/hr Documented by: Magnesium Sulfate (Magnesium Sulfate In Water Premix) 20 gm in 500 mls @ 50 mls/hr IV ASDIRECTED [facility]; Protocol Last Admin: 05/02/20 00:26 Dose: 2 gm/hr, 50 mls/hr Documented by: Ibuprofen (Motrin) 400 mg PO Q4H PRN PRN Reason: Pain Ibuprofen (Motrin) 800 mg PO Q6H PRN PRN Reason: Pain Last Admin: 05/02/20 04:35 Dose: 800 mg Documented by: Labetalol HCl (Normodyne) 200 mg PO BID [facility] Last Admin: 05/02/20 06:56 Dose: 200 mg Documented by: Lidocaine HCl (Xylocaine 1%) 50 ml INJECT ONETIME PRN PRN Reason: Laceration repair Last Admin: 04/30/20 22:03 Dose: 50 ml Documented by: Methylergonovine Maleate (Methergine) 0.2 mg IM ASDIRECTED PRN PRN Reason: Post Hemorrhage Misoprostol (Cytotec) 200 mcg PO ONETIME PRN PRN Reason: Post Hemorrhage Misoprostol (Cytotec) 25 mcg VAG ONETIME PRN PRN Reason: Cervical Ripening Misoprostol (Cytotec) 25 mcg VAG Q4H PRN PRN Reason: Cervical Ripening Nalbuphine HCl (Nubain) 10 mg IVPUSH Q1H PRN PRN Reason: Pain (severe 7-10) Oxycodone HCl (Oxycodone) 5 mg PO Q2H PRN PRN Reason: Pain Potassium Chloride (Klor-Con M20) 20 meq PO TID [facility] Last Admin: 05/02/20 06:56 Dose: 20 meq Documented by: Sodium Chloride (Saline Flush) 10 ml FLUSH ASDIRECTED PRN PRN Reason: Keep Vein Open Sodium Chloride (Saline Flush) 2.5 ml FLUSH ASDIRECTED PRN PRN Reason: Keep Vein Open Sodium Chloride (Normal Saline) 10 ml IV ASDIRECTED PRN PRN Reason: IV Use Sterile Water (Sterile Water For Irrigation) 1,000 ml IRR ASDIRECTED PRN PRN Reason: delivery Terbutaline Sulfate (Brethine) 0.25 mg SUBCUT ASDIRECTED PRN PRN Reason: Tacysystole Francisco Lucinda (Tucks) 1 pad TOP ASDIRECTED PRN PRN Reason: comfort care Last Admin: 04/30/20 22:03 Dose: 1 applic Documented by: Discontinued Medications Fentanyl (Sublimaze) Confirm Administered Dose 100 mcg .ROUTE .STK-MED ONE Stop: 04/30/20 14:36 Fentanyl (Sublimaze) Confirm Administered Dose 100 mcg .ROUTE .STK-MED ONE Stop: 04/30/20 18:11 Oxytocin/Sodium Chloride (Oxytocin 30 Unit/500 Ml-Ns) Confirm Administered Dose 30 unit in 500 mls @ as directed .ROUTE .STK-MED ONE Stop: 04/30/20 12:37 Ropivacaine (Naropin 0.2%) Confirm Administered Dose 100 mls @ as directed .ROUTE .STK-MED ONE Stop: 04/30/20 14:36 Magnesium Sulfate 4 gm/ Premix 100 mls @ 25 mls/hr IV ONETIME ONE Stop: 05/02/20 02:45 Last Admin: 05/01/20 23:29 Dose: 50 mls/hr Documented by: Labetalol HCl (Normodyne) 20 mg IVPUSH ASDIRECTED ONE; Protocol Stop: 05/01/20 22:18 Last Admin: 05/01/20 23:37 Dose: 20 mg Documented by: Labetalol HCl (Normodyne) 40 mg IVPUSH ONETIME ONE; Protocol Stop: 05/02/20 05:31 Last Admin: 05/02/20 05:57 Dose: 20 mg Documented by: Labetalol HCl (Normodyne) Confirm Administered Dose 200 mg .ROUTE .STK-MED ONE Stop: 05/02/20 06:54 Sodium Chloride (Saline Flush) 10 ml FLUSH ASDIRECTED PRN PRN Reason: Keep Vein Open Sodium Chloride (Saline Flush) 2.5 ml FLUSH ASDIRECTED PRN PRN Reason: Keep Vein Open Sodium Chloride (Normal Saline) 10 ml IV ASDIRECTED PRN PRN Reason: IV Use - Interaction Infant Disposition, : to Nursery (Bilirubin recheck) Interaction: Holding Infant Infant Feeding: Attempted ; Nursed Fair/Poor Support Person: , Friend - Recovery Exam Fundal Tone: Firm Fundal Level: 1 Fingerbreadths Below Umbilicus Fundal Placement: Midline Lochia Amount: Scant Lochia Color: Rubra/Red Perineum Description: Other (see below) Other Perinuem Description: 2nd degree episiotomy Episiotomy/Laceration: Approximated Bladder Status: Voiding Urinary Elimination: Voided - Exam General: Alert, Oriented, Cooperative, Lethargic HEENT: Pupils Equal Neck: Supple Lungs: Clear to Auscultation, Normal Respiratory Effort Cardiovascular: Regular Rate, Regular Rhythm GI/Abdominal Exam: Normal Bowel Sounds, Soft, Non-Tender, No Organomegaly, No Distention, No Abnormal Bruit, No Mass, Pelvis Stable Extremities: Normal Inspection, Normal Range of Motion, Non-Tender, No Pedal Edema, Normal Capillary Refill Skin: Warm, Dry, Intact Neurological: No New Focal Deficit, Reflexes Equal Bilateral (1+) Psy/Mental Status: Alert, Normal Affect, Normal Mood - Problem List & Annotations (1) Vaginal delivery SNOMED Code(s): 987760584 Code(s): O80 - ENCOUNTER FOR FULL-TERM UNCOMPLICATED DELIVERY Status: Acute Current Visit: No - Problem List Review Problem List Initiated/Reviewed/Updated: Yes - Assessment Assessment:: 29 yo admitted for spontaneous labor s/p , PPD12, 2nd degree perineal laceration approximated, on magnesium for increased BPs - Plan Plan:: 1. Routine cares 2. GBS negative 3. O positive, antibody negative 4. Rubella immune 5. Magnesium x24 hrs for high bps (>150s systolic), vs q2hrs, serial neuro checks, serial mag levels (mag level at 0400 = 4.6) 6. Up for voiding, otherwise bed rest 7. IVFs 8. Clear liquids 9. H/H - 11.3/34.1
[2020-05-02] MEDS ORDERED: Labetalol 100 MG Tab PO SCH (09:00)
--- NOTE | 2020-05-02 09:24 | OR ---
SURGEON: ANURAG DURON DATE OF PROCEDURE: 04/30/2020 PREOPERATIVE DIAGNOSIS: A 29-year-old G2, P1-0-0-1 at 39 weeks and 6 days, admitted in early labor. POSTOPERATIVE DIAGNOSIS: A 29-year-old G2, P1-0-0-1 at 39 weeks and 6 days, admitted in early labor. PROCEDURE: Normal spontaneous vaginal delivery Repair of second-degree vaginal laceration. EBL: 300. IV FLUIDS: Pitocin running. ANESTHESIA: Epidural. NOTE AND FINDING: A live female delivered at 19:29. score of 8 and 9. Weight is 3270 g. BRIEF HISTORY: She is a 29-year-old G2, P1, low risk patient, who came in complaining of contractions and passage of show, and she was examined, she was found to be 3 cm dilated. As a result, she was kept for augmentation of labor. The patient was allowed to progress. She had no cervical change, so Pitocin was started, and the patient then made change, and she became fully dilated and AROM was done when she was fully dilated. She was then encouraged to push. PROCEDURE IN DETAIL: With good pushing effort, she delivered the head, subsequently by the anterior and posterior shoulder. Body of the infant was delivered. Infant was placed on maternal abdomen. The cord was clamped and cut. The placenta was delivered via controlled cord traction. Perineum was inspected, a second-degree laceration was noted, which was repaired in layers. The patient was left in Labor and Delivery room in stable condition. Pad count was correct, all instrument was correct x2. DESMOND / POLO /[id number] BELÉN
--- NOTE | 2020-05-02 10:29 | PCM.SN.2 ---
- Free Text/Narrative Note: Notified by nurse that patient BP is 180s/100 , she denied Headache , RUQ pain and BV , She had some elevated BP during labor but no severe range. CBC and CMP normal , PCR: 0.6 Now based on the new BPS she is severe preclampsia .IV labetalol push 20mg X 2 given , Patient started on Labetalol 200mg bid started at 7pm Patient seen at bedside , she was explained the diagnosis . she denies any complains Exam: General: NAD Chest: CTA BL Abdomen. flat , uterus firm, no organomegaly , normal bowel sound VSS: 110s - 130s/ 70 - 90s U/O adequate Imp Severe Preclampsia , PPD 2 , BP now stable Plan Regular diet X 1 Venodynes Pain control as needed Magnessium per protocol Magnessium X 24hrs Labetalol 200mg bid
--- NOTE | 2020-05-02 17:56 | PCM.SN.2 ---
- Free Text/Narrative Note: Feeling flushed on magnesium. Has had 2000 Ml urine out put so far on day shift. Denies Tolliver/visual changes. Denies shortness of breath. BPs 140-150s/90s. On labetalol 200 mg bid. Continue magnesium prophylaxis until improved diuresis and further stabilization of BPs. Explained plan of care to patient. She agrees.
[2020-05-02] MEDS: Labetalol 100 MG Tab PO SCH (18:37)
[2020-05-03] MEDS: Acetaminophen 500 MG Tab PO PRN (00:15)
[2020-05-03] MEDS: hydrOXYzine Pamoate 25 MG Cap PO PRN (03:08)
[2020-05-03] MEDS: Magnesium Sulfate/Water 20 GM/500 ML BAG IV SCH (05:06)
[2020-05-03] MEDS: Potassium Chloride 20 MEQ Tab.ER PO SCH (05:08)
[2020-05-03] MEDS: Labetalol 100 MG Tab PO SCH (06:29)
--- NOTE | 2020-05-03 08:17 | PCM.PNPP ---
<Gary Castillo - Last Filed: 05/03/20 08:12> - General Info Date of Service: 05/03/20 Admission Dx/Problem (Free Text): 29yo s/p PPD3 severe preeclampsia with severe range blood pressures intrapartum and , s/p magnesium Subjective Update: Ambulating to bathroom, voiding, magnesium discontinued this am, last magnesium level 7.4, BP 139/84 at 0630, patient feeling well, denies headache or changes in vision, a "bit drowsy from the sleeping pill' alert and oriented, passing flatus, no BM yet Functional Status: Reports: Pain Controlled, Ambulating Pain Score: 4 - Review of Systems General: Reports: No Symptoms HEENT: Reports: No Symptoms Pulmonary: Reports: No Symptoms Cardiovascular: Reports: No Symptoms Gastrointestinal: Reports: No Symptoms Genitourinary: Reports: No Symptoms Musculoskeletal: Reports: No Symptoms Skin: Reports: No Symptoms Neurological: Reports: No Symptoms Psychiatric: Reports: No Symptoms - General Info Date of Service: 05/03/20 - Patient Data Vital Signs - Most Recent: Last Vital Signs Temp 96.9 F 05/03/20 04:00 Pulse 83 05/03/20 06:29 Resp 16 05/03/20 04:00 BP 139/84 05/03/20 06:29 Pulse Ox 98 05/03/20 04:00 Weight - Most Recent: 63.3 kg I&O - Last 24 Hours: Intake & Output 05/02/20 05/03/20 05/03/20 22:59 06:59 14:59 Output Total 1999 Balance -1999 Lab Results - Last 24 Hours: Laboratory Results - last 24 hr 05/02/20 05/02/20 05/02/20 Range/Units 10:05 16:17 22:12 Magnesium 5.9 H 6.6 H 7.1 H (1.8-2.4) mg/dL 05/03/20 Range/Units 04:47 Magnesium 7.3 H (1.8-2.4) mg/dL Med Orders - Current: Current Medications Acetaminophen (Tylenol Extra Strength) 500 mg PO Q4H PRN PRN Reason: Pain Acetaminophen (Tylenol Extra Strength) 1,000 mg PO Q4H PRN PRN Reason: Pain Last Admin: 05/03/20 00:15 Dose: 1,000 mg Documented by: Benzocaine/Menthol (Dermoplast Pain Relief 20%-0.5% [place]) 0 gm TOP ASDIRECTED PRN PRN Reason: Perineal Comfort Measure Bisacodyl (Dulcolax) 10 mg RECTAL ONETIME PRN PRN Reason: Constipation Butorphanol Tartrate (Stadol) 1 mg IVPUSH Q1H PRN PRN Reason: Pain Calcium Gluconate (Calcium Gluconate) 1 gm IVPUSH ASDIRECTED PRN PRN Reason: respiratory distress Carboprost Tromethamine (Hemabate Ds) 250 mcg IM ASDIRECTED PRN PRN Reason: Post Hemorrhage Docusate Sodium (Colace) 100 mg PO BID PRN PRN Reason: Constipation Last Admin: 05/01/20 09:14 Dose: 100 mg Documented by: Emollient Ointment (Lansinoh Hpa) 0 gm TOP ASDIRECTED PRN PRN Reason: Sore Nipples Last Admin: 04/30/20 22:04 Dose: 1 applicful Documented by: Hydroxyzine Pamoate (Vistaril) 50 mg PO BEDTIME PRN PRN Reason: Insomnia Last Admin: 05/03/20 03:08 Dose: 25 mg Documented by: Lactated Ringer's (Ringers, Lactated) 1,000 mls @ 150 mls/hr IV ASDIRECTED RD Last Admin: 04/30/20 13:19 Dose: 150 mls/hr Documented by: Oxytocin/Sodium Chloride (Oxytocin 30 Unit/500 Ml-Ns) 30 unit in 500 mls @ 500 mls/hr IV TITRATE RD Tranexamic Acid 1,000 mg/ (Sodium Chloride) 110 mls @ 660 mls/hr IV ONETIME PRN PRN Reason: Bleeding Oxytocin/Sodium Chloride (Oxytocin 30 Unit/500 Ml-Ns) 30 unit in 500 mls @ 2 mls/hr IV TITRATE RD; Protocol Last Titration: 04/30/20 16:30 Dose: 8 munits/min, 8 mls/hr Documented by: Magnesium Sulfate (Magnesium Sulfate In Water Premix) 20 gm in 500 mls @ 50 mls/hr IV ASDIRECTED RD; Protocol Last Admin: 05/03/20 05:06 Dose: 2 gm/hr, 50 mls/hr Documented by: Ibuprofen (Motrin) 400 mg PO Q4H PRN PRN Reason: Pain Ibuprofen (Motrin) 800 mg PO Q6H PRN PRN Reason: Pain Last Admin: 05/02/20 04:35 Dose: 800 mg Documented by: Labetalol HCl (Normodyne) 200 mg PO BID@0700,1900 [facility] Last Admin: 05/03/20 06:29 Dose: 200 mg Documented by: Lidocaine HCl (Xylocaine 1%) 50 ml INJECT ONETIME PRN PRN Reason: Laceration repair Last Admin: 04/30/20 22:03 Dose: 50 ml Documented by: Methylergonovine Maleate (Methergine) 0.2 mg IM ASDIRECTED PRN PRN Reason: Post Hemorrhage Misoprostol (Cytotec) 200 mcg PO ONETIME PRN PRN Reason: Post Hemorrhage Misoprostol (Cytotec) 25 mcg VAG ONETIME PRN PRN Reason: Cervical Ripening Misoprostol (Cytotec) 25 mcg VAG Q4H PRN PRN Reason: Cervical Ripening Nalbuphine HCl (Nubain) 10 mg IVPUSH Q1H PRN PRN Reason: Pain (severe 7-10) Oxycodone HCl (Oxycodone) 5 mg PO Q2H PRN PRN Reason: Pain Potassium Chloride (Klor-Con M20) 20 meq PO TID [facility] Last Admin: 05/03/20 05:08 Dose: 20 meq Documented by: Sodium Chloride (Saline Flush) 10 ml FLUSH ASDIRECTED PRN PRN Reason: Keep Vein Open Sodium Chloride (Saline Flush) 2.5 ml FLUSH ASDIRECTED PRN PRN Reason: Keep Vein Open Sodium Chloride (Normal Saline) 10 ml IV ASDIRECTED PRN PRN Reason: IV Use Sterile Water (Sterile Water For Irrigation) 1,000 ml IRR ASDIRECTED PRN PRN Reason: delivery Terbutaline Sulfate (Brethine) 0.25 mg SUBCUT ASDIRECTED PRN PRN Reason: Tacysystole Witch Lucinda (Tucks) 1 pad TOP ASDIRECTED PRN PRN Reason: comfort care Last Admin: 04/30/20 22:03 Dose: 1 applic Documented by: Discontinued Medications Fentanyl (Sublimaze) Confirm Administered Dose 100 mcg .ROUTE .STK-MED ONE Stop: 04/30/20 14:36 Fentanyl (Sublimaze) Confirm Administered Dose 100 mcg .ROUTE .STK-MED ONE Stop: 04/30/20 18:11 Oxytocin/Sodium Chloride (Oxytocin 30 Unit/500 Ml-Ns) Confirm Administered Dose 30 unit in 500 mls @ as directed .ROUTE .STK-MED ONE Stop: 04/30/20 12:37 Ropivacaine (Naropin 0.2%) Confirm Administered Dose 100 mls @ as directed .ROUTE .STK-MED ONE Stop: 04/30/20 14:36 Magnesium Sulfate 4 gm/ Premix 100 mls @ 25 mls/hr IV ONETIME ONE Stop: 05/02/20 02:45 Last Admin: 05/01/20 23:29 Dose: 50 mls/hr Documented by: Labetalol HCl (Normodyne) 20 mg IVPUSH ASDIRECTED ONE; Protocol Stop: 05/01/20 22:18 Last Admin: 05/01/20 23:37 Dose: 20 mg Documented by: Labetalol HCl (Normodyne) [address] Last Admin: 05/02/20 06:56 Dose: 200 mg Documented by: Labetalol HCl (Normodyne) 40 mg IVPUSH ONETIME ONE; Protocol Stop: 05/02/20 05:31 Last Admin: 05/02/20 05:57 Dose: 20 mg Documented by: Labetalol HCl (Normodyne) Confirm Administered Dose 200 mg .ROUTE .STK-MED ONE Stop: 05/02/20 06:54 Sodium Chloride (Saline Flush) 10 ml FLUSH ASDIRECTED PRN PRN Reason: Keep Vein Open Sodium Chloride (Saline Flush) 2.5 ml FLUSH ASDIRECTED PRN PRN Reason: Keep Vein Open Sodium Chloride (Normal Saline) 10 ml IV ASDIRECTED PRN PRN Reason: IV Use - Infant Interaction Disposition, : to Nursery (Bilirubin recheck) Infant Interaction: Holding Infant Feeding: Attempted ; Nursed Fair/Poor Support Person: , Friend - Recovery Exam Fundal Tone: Firm Fundal Level: 1 Fingerbreadths Below Umbilicus Fundal Placement: Midline Lochia Amount: Scant Lochia Color: Rubra/Red Perineum Description: Other (see below) Other Perinuem Description: 2nd degree episiotomy Episiotomy/Laceration: Approximated Bladder Status: Voiding Urinary Elimination: Voided - Exam General: Alert, Oriented, Cooperative, No Acute Distress HEENT: Pupils Equal, Pupils Reactive, EOMI, Mucous Membr. Moist/[place] Neck: Supple, Trachea Midline, No JVD Lungs: Clear to Auscultation, Normal Respiratory Effort Cardiovascular: Regular Rate, Regular Rhythm, No Murmurs GI/Abdominal Exam: Normal Bowel Sounds, Soft, Non-Tender, No Organomegaly, No Distention, No Mass Extremities: Normal Inspection, Normal Range of Motion, Non-Tender, No Pedal Edema, Normal Capillary Refill Skin: Warm, Dry, Intact Wound/Incisions: Healing Well Neurological: No New Focal Deficit Psy/Mental Status: Alert, Normal Affect, Normal Mood - Problem List & Annotations (1) Vaginal delivery SNOMED Code(s): 066624000 Code(s): O80 - ENCOUNTER FOR FULL-TERM UNCOMPLICATED DELIVERY Status: Acute Current Visit: No (2) Preeclampsia SNOMED Code(s): 912906313 Code(s): O14.90 - UNSPECIFIED PRE-ECLAMPSIA, UNSPECIFIED TRIMESTER Status: Acute Current Visit: Yes - Problem List Review Problem List Initiated/Reviewed/Updated: Yes - Assessment Assessment:: 29 yo admitted for spontaneous labor s/p PPD3, 2nd degree perineal laceration approximated, s/p magnesium for severe range blood pressures intrapartum and , magnesium discontinued at 0630 this am, on labetolol, BPs 130s systolic - Plan Plan:: 1. Routine cares 2. GBS negative 3. O positive, antibody negative 4. Rubella immune 5. Magnesium discontinued, last magnesium level 7.4, monitor BPs, [id number] 6. Ambulate as tolerated 7. IVFs discontinued, UO adequate 8. Diet as tolerated 9. H/H - 11.3/34.1 10. S/p mag, monitor for 12-24 hrs 11. 200mg Labetalol bid 12. Baby to nursery for bilirubin recheck <Matilde Grove - Last Filed: 05/03/20 08:39> - Patient Data Vital Signs - Most Recent: Last Vital Signs Temp 36.7 C 05/03/20 08:00 Pulse 76 05/03/20 08:00 Resp 18 05/03/20 08:00 BP 148/89 H 05/03/20 08:00 Pulse Ox 97 05/03/20 08:00 I&O - Last 24 Hours: Intake & Output 05/02/20 05/03/20 05/03/20 22:59 06:59 14:59 Output Total 1999 Balance -1999 Lab Results - Last 24 Hours: Laboratory Results - last 24 hr 05/02/20 05/02/20 05/02/20 Range/Units 10:05 16:17 22:12 Magnesium 5.9 H 6.6 H 7.1 H (1.8-2.4) mg/dL 05/03/20 Range/Units 04:47 Magnesium 7.3 H (1.8-2.4) mg/dL Med Orders - Current: Current Medications Acetaminophen (Tylenol Extra Strength) 500 mg PO Q4H PRN PRN Reason: Pain Acetaminophen (Tylenol Extra Strength) 1,000 mg PO Q4H PRN PRN Reason: Pain Last Admin: 05/03/20 00:15 Dose: 1,000 mg Documented by: Benzocaine/Menthol (Dermoplast Pain Relief 20%-0.5% [place]) 0 gm TOP ASDIRECTED PRN PRN Reason: Perineal Comfort Measure Bisacodyl (Dulcolax) 10 mg RECTAL ONETIME PRN PRN Reason: Constipation Butorphanol Tartrate (Stadol) 1 mg IVPUSH Q1H PRN PRN Reason: Pain Calcium Gluconate (Calcium Gluconate) 1 gm IVPUSH ASDIRECTED PRN PRN Reason: respiratory distress Carboprost Tromethamine (Hemabate Ds) 250 mcg IM ASDIRECTED PRN PRN Reason: Post Hemorrhage Docusate Sodium (Colace) 100 mg PO BID PRN PRN Reason: Constipation Last Admin: 05/01/20 09:14 Dose: 100 mg Documented by: Emollient Ointment (Lansinoh Hpa) 0 gm TOP ASDIRECTED PRN PRN Reason: Sore Nipples Last Admin: 04/30/20 22:04 Dose: 1 applicful Documented by: Hydroxyzine Pamoate (Vistaril) 50 mg PO BEDTIME PRN PRN Reason: Insomnia Last Admin: 05/03/20 03:08 Dose: 25 mg Documented by: Lactated Ringer's (Ringers, Lactated) 1,000 mls @ 150 mls/hr IV ASDIRECTED RD Last Admin: 04/30/20 13:19 Dose: 150 mls/hr Documented by: Oxytocin/Sodium Chloride (Oxytocin 30 Unit/500 Ml-Ns) 30 unit in 500 mls @ 500 mls/hr IV TITRATE [facility] Tranexamic Acid 1,000 mg/ (Sodium Chloride) 110 mls @ 660 mls/hr IV ONETIME PRN PRN Reason: Bleeding Oxytocin/Sodium Chloride (Oxytocin 30 Unit/500 Ml-Ns) 30 unit in 500 mls @ 2 mls/hr IV TITRATE [facility]; Protocol Last Titration: 04/30/20 16:30 Dose: 8 munits/min, 8 mls/hr Documented by: Magnesium Sulfate (Magnesium Sulfate In Water Premix) 20 gm in 500 mls @ 50 mls/hr IV ASDIRECTED [facility]; Protocol Last Admin: 05/03/20 05:06 Dose: 2 gm/hr, 50 mls/hr Documented by: Ibuprofen (Motrin) 400 mg PO Q4H PRN PRN Reason: Pain Ibuprofen (Motrin) 800 mg PO Q6H PRN PRN Reason: Pain Last Admin: 05/02/20 04:35 Dose: 800 mg Documented by: Labetalol HCl (Normodyne) 200 mg PO BID@0700,1900 [facility] Last Admin: 05/03/20 06:29 Dose: 200 mg Documented by: Lidocaine HCl (Xylocaine 1%) 50 ml INJECT ONETIME PRN PRN Reason: Laceration repair Last Admin: 04/30/20 22:03 Dose: 50 ml Documented by: Methylergonovine Maleate (Methergine) 0.2 mg IM ASDIRECTED PRN PRN Reason: Post Hemorrhage Misoprostol (Cytotec) 200 mcg PO ONETIME PRN PRN Reason: Post Hemorrhage Misoprostol (Cytotec) 25 mcg VAG ONETIME PRN PRN Reason: Cervical Ripening Misoprostol (Cytotec) 25 mcg VAG Q4H PRN PRN Reason: Cervical Ripening Nalbuphine HCl (Nubain) 10 mg IVPUSH Q1H PRN PRN Reason: Pain (severe 7-10) Oxycodone HCl (Oxycodone) 5 mg PO Q2H PRN PRN Reason: Pain Potassium Chloride (Klor-Con M20) 20 meq PO TID [facility] Last Admin: 08/18/20 05:08 Dose: 20 meq Documented by: Sodium Chloride (Saline Flush) 10 ml FLUSH ASDIRECTED PRN PRN Reason: Keep Vein Open Sodium Chloride (Saline Flush) 2.5 ml FLUSH ASDIRECTED PRN PRN Reason: Keep Vein Open Sodium Chloride (Normal Saline) 10 ml IV ASDIRECTED PRN PRN Reason: IV Use Sterile Water (Sterile Water For Irrigation) 1,000 ml IRR ASDIRECTED PRN PRN Reason: delivery Terbutaline Sulfate (Brethine) 0.25 mg SUBCUT ASDIRECTED PRN PRN Reason: Tacysystole [place] Lucinda (Tucks) 1 pad TOP ASDIRECTED PRN PRN Reason: comfort care Last Admin: 04/30/20 22:03 Dose: 1 applic Documented by: Discontinued Medications Fentanyl (Sublimaze) Confirm Administered Dose 100 mcg .ROUTE .STK-MED ONE Stop: 04/30/20 14:36 Fentanyl (Sublimaze) Confirm Administered Dose 100 mcg .ROUTE .STK-MED ONE Stop: 04/30/20 18:11 Oxytocin/Sodium Chloride (Oxytocin 30 Unit/500 Ml-Ns) Confirm Administered Dose 30 unit in 500 mls @ as directed .ROUTE .STK-MED ONE Stop: 04/30/20 12:37 Ropivacaine (Naropin 0.2%) Confirm Administered Dose 100 mls @ as directed .ROUTE .STK-MED ONE Stop: 04/30/20 14:36 Magnesium Sulfate 4 gm/ Premix 100 mls @ 25 mls/hr IV ONETIME ONE Stop: 05/02/20 02:45 Last Admin: 05/01/20 23:29 Dose: 50 mls/hr Documented by: Labetalol HCl (Normodyne) 20 mg IVPUSH ASDIRECTED ONE; Protocol Stop: 05/01/20 22:18 Last Admin: 05/01/20 23:37 Dose: 20 mg Documented by: Labetalol HCl (Normodyne) [address] Last Admin: 05/02/20 06:56 Dose: 200 mg Documented by: Labetalol HCl (Normodyne) 40 mg IVPUSH ONETIME ONE; Protocol Stop: 05/02/20 05:31 Last Admin: 05/02/20 05:57 Dose: 20 mg Documented by: Labetalol HCl (Normodyne) Confirm Administered Dose 200 mg .ROUTE .STK-MED ONE Stop: 05/02/20 06:54 Sodium Chloride (Saline Flush) 10 ml FLUSH ASDIRECTED PRN PRN Reason: Keep Vein Open Sodium Chloride (Saline Flush) 2.5 ml FLUSH ASDIRECTED PRN PRN Reason: Keep Vein Open Sodium Chloride (Normal Saline) 10 ml IV ASDIRECTED PRN PRN Reason: IV Use - Plan Plan:: Patient seen and examined, agree with above. BPs improved after midnight. Diuresis also improved. Will monitor without magnesium today and if remains stable, will plan discharge for this evening. Continue labetalol at home and return to [facility] in one week for BP check. Asked to monitor BPs at home--and call if >140/90. Discharge instructions reviewed. Infection and bleeding warnings reviewed. Follow up at [facility] one week and 6 weeks.
[2020-05-03 14:14] VITALS: PULSE 74
[2020-05-03 16:18] VITALS: BP 141/85
== END 2020-05-03 18:00 | disposition home or self-care (01) | DRG 560 ==
LOC: MW.OBCHECK 08:59 → MW.OB 09:00 → OBSVTOIN 19:29 → MW.OBCHECK 19:29 → MW.OB 19:29 → UNDOADMOB 19:40 → MW.OB 05-01 01:59
PROVIDERS: ADMIT Obstetrics & Gynecology; ATTEND Obstetrics & Gynecology
PROC: 10E0XZZ Delivery of Products of Conception, External Approach (ICD-10-PCS; principal; 2020-04-30)
PROC: 10907ZC Drainage of Amniotic Fluid, Therapeutic from Products of Conception, Via Natural or Artificial Opening (ICD-10-PCS; 2020-04-30)
PROC: 0KQM0ZZ Repair Perineum Muscle, Open Approach (ICD-10-PCS; 2020-04-30)
PROC: 3E0R3BZ Introduction of Anesthetic Agent into Spinal Canal, Percutaneous Approach (ICD-10-PCS; 2020-04-30)
PROC: 0KQM0ZZ Repair Perineum Muscle, Open Approach (ICD-10-PCS; 2020-04-30)
PROC: 00HU33Z Insertion of Infusion Device into Spinal Canal, Percutaneous Approach (ICD-10-PCS; 2020-04-30)
DX: O70.1 Second degree perineal laceration during delivery (principal); Z3A.39 39 weeks gestation of pregnancy; Z37.0 Single live birth; O14.15 Severe pre-eclampsia, complicating the puerperium; Z11.59 Encounter for screening for other viral diseases
CPT/HCPCS: 01967; 36415; 51701; 51702; 59025; 59409; 80053; 82570; 83735; 84156; 84550; 85014; 85018; 85025; 85027; 86592; 86850; 86900; 86901; A9270-GY; J2001; J2590; J3475; J3490; J7120; U0002

== ENCOUNTER 2020-05-04 16:37 | Observation (INO) | payer BC ==
[2020-05-04] MEDS ORDERED: Magnesium Sulfate/Water 4 GM in Premix Bag 1 BAG IV ONE (16:40)
[2020-05-04] MEDS ORDERED: Sodium Chloride 0.9% 2.5 ML Syringe FLUSH PRN (16:40)
[2020-05-04] MEDS ORDERED: Sodium Chloride 0.9% 10 ML Syringe FLUSH PRN (16:40)
[2020-05-04] MEDS ORDERED: Calcium Gluconate 10% 1 GM/10 ML SDV IV PRN (16:40)
[2020-05-04] MEDS ORDERED: Sodium Chloride 0.9% 10 ML SDV IV PRN (16:40)
--- NOTE | 2020-05-04 16:40 | PCM.SN.2 ---
- Free Text/Narrative Note: [facility] in physical [facility]. Begin Magnesium for seizure prophylaxis. Monitor BP, increase antihypertensive and treat acute severe BP as required.
[2020-05-04] MEDS ORDERED: Sodium Chloride 0.9% 1,000 ML IV SCH (17:30)
[2020-05-04] MEDS: Magnesium Sulfate/Water 20 GM/500 ML BAG IV SCH (17:37)
[2020-05-04] MEDS ORDERED: NIFEdipine 30 MG Tab.ER ONE (18:13)
[2020-05-04] MEDS ORDERED: NIFEdipine 30 MG Tab.ER PO ONE (20:05)
[2020-05-04 20:10] LABS: BLOOD UREA NITROGEN,BUN 7 mg/dL (7.0-18.0); CARBON DIOXIDE,CO2 27.8 mmol/L (21.0-32.0); CHLORIDE,CL 102 mmol/L (98-107); GLUCOSE RANDOM 93 mg/dL (74-106); SODIUM,NA 138 mmol/L (136-145)
--- NOTE | 2020-05-04 20:24 | PCM.SN.2 ---
- Free Text/Narrative Note: Notified by RN of patient's blood pressures and new complaint of chest pain. Patient states she has a chest pain with every breath. Began 1 hour ago. No radiation. Headache has resolved with Tylenol. BP 160-180s/80-90s CV RRR Lungs CTAB Breast engorgement is noted Tenderness to palpation of chest wall Discussed with patient I do not suspect a PE or pulmonary edema given short interval from Magnesium administration to start. I suspect breast engorgement is causing pressure, with resulting pain, exacerbated by patient's anxiety (she admits to being very anxious about being in the hospital tonight). Will increase Nifedipine XL to 60mg daily, add second agent if blood pressure does not decrease with this regimen. Patient to pump, I suspect chest pain will improve with release of breast milk. Continue to monitor closely.
[2020-05-04] MEDS ORDERED: NIFEdipine 30 MG Tab.ER PO SCH (21:00)
[2020-05-04] MEDS: Potassium Chloride 10 MEQ Tab.ER PO SCH (21:51)
[2020-05-04] MEDS: hydrOXYzine Pamoate 25 MG Cap PO PRN (22:49)
[2020-05-04] MEDS: Acetaminophen 325 MG Tab PO PRN (23:38)
[2020-05-05] MEDS: Magnesium Sulfate/Water 20 GM/500 ML BAG IV SCH (03:51)
[2020-05-05] MEDS: Acetaminophen 325 MG Tab PO PRN (03:59)
[2020-05-05] MEDS: Acetaminophen/Butalbital/Caffeine 325-50-40 MG Tab PO PRN ×4 (06:41→21:55)
[2020-05-05] MEDS ORDERED: hydrALAZINE 10 MG Tab PO PRN (08:15)
--- NOTE | 2020-05-05 08:19 | PCM.PNPP ---
- General Info Date of Service: 05/05/20 Functional Status: Reports: Pain Controlled, Tolerating Diet, Ambulating, Urinating - Review of Systems General: Reports: Fatigue. Denies: Fever, Weakness Pulmonary: Denies: Shortness of Breath Cardiovascular: Denies: Chest Pain, Palpitations, Lightheadedness Gastrointestinal: Denies: Abdominal Pain, Nausea, Vomiting Genitourinary: Denies: Flank Pain Musculoskeletal: Reports: No Symptoms Skin: Reports: No Symptoms Neurological: Reports: No Symptoms Psychiatric: Reports: No Symptoms - General Info Date of Service: 05/05/20 - Patient Data Vital Signs - Most Recent: Last Vital Signs Temp 36.2 C 05/05/20 03:42 Pulse 87 05/05/20 03:42 Resp 12 05/05/20 03:42 BP 129/82 05/05/20 03:42 Pulse Ox 94 L 05/05/20 03:42 Weight - Most Recent: 63.503 kg I&O - Last 24 Hours: Intake & Output 05/04/20 05/05/20 05/05/20 22:59 06:59 14:59 Intake Total 490 Output Total 1600 Balance -1600 490 Lab Results - Last 24 Hours: Laboratory Results - last 24 hr 05/04/20 05/04/20 05/04/20 Range/Units 18:30 19:37 19:37 WBC 9.46 (4.0-11.0) K/uL RBC 4.00 L (4.30-5.90) M/uL Hgb 12.2 (12.0-16.0) g/dL Hct 36.9 (36.0-46.0) % MCV 92.3 (80.0-98.0) fL MCH 30.5 (27.0-32.0) pg MCHC 33.1 (31.0-37.0) g/dL RDW Std Deviation 45.3 (28.0-62.0) fl RDW Coeff of Maria Elena 13 (11.0-15.0) % Plt Count 234 (150-400) K/uL MPV 9.50 (7.40-12.00) fL Nucleated RBC % 0.0 /100WBC Nucleated RBCs # 0 K/uL Sodium (136-145) mmol/L Potassium (3.5-5.1) mmol/L Chloride (98-107) mmol/L Carbon Dioxide (21.0-32.0) mmol/L BUN (7.0-18.0) mg/dL Creatinine (0.6-1.0) mg/dL Est Cr Clr Drug Dosing mL/min Estimated GFR (MDRD) ml/min Glucose (74-106) mg/dL Uric Acid (2.6-7.2) mg/dL Calcium (8.5-10.1) mg/dL Magnesium (1.8-2.4) mg/dL Total Bilirubin (0.2-1.0) mg/dL AST (15-37) IU/L ALT (14-63) IU/L Alkaline Phosphatase (46-116) U/L Total Protein (6.4-8.2) g/dL Albumin (3.4-5.0) g/dL Globulin (2.6-4.0) g/dL Albumin/Globulin Ratio (0.9-1.6) Ur Random Creatinine 6.5 mg/dL U Random Total Protein < 6.0 (<11.9) mg/dL Protein/Creatinin Ratio TNP Blood Type O POSITIVE Antibody Screen NEGATIVE 05/04/20 05/05/20 Range/Units 19:37 01:53 WBC (4.0-11.0) K/uL RBC (4.30-5.90) M/uL Hgb (12.0-16.0) g/dL Hct (36.0-46.0) % MCV (80.0-98.0) fL MCH (27.0-32.0) pg MCHC (31.0-37.0) g/dL RDW Std Deviation (28.0-62.0) fl RDW Coeff of Maria Elena (11.0-15.0) % Plt Count (150-400) K/uL MPV (7.40-12.00) fL Nucleated RBC % /100WBC Nucleated RBCs # K/uL Sodium 138 (136-145) mmol/L Potassium 3.0 L (3.5-5.1) mmol/L Chloride 102 (98-107) mmol/L Carbon Dioxide 27.8 (21.0-32.0) mmol/L BUN 7 (7.0-18.0) mg/dL Creatinine 0.5 L (0.6-1.0) mg/dL Est Cr Clr Drug Dosing 124.15 mL/min Estimated GFR (MDRD) > 60.0 ml/min Glucose 93 (74-106) mg/dL Uric Acid 5.4 (2.6-7.2) mg/dL Calcium 9.2 (8.5-10.1) mg/dL Magnesium 5.0 H 5.8 H (1.8-2.4) mg/dL Total Bilirubin 0.4 (0.2-1.0) mg/dL AST 33 (15-37) IU/L ALT 30 (14-63) IU/L Alkaline Phosphatase 106 (46-116) U/L Total Protein 7.0 (6.4-8.2) g/dL Albumin 3.1 L (3.4-5.0) g/dL Globulin 3.9 (2.6-4.0) g/dL Albumin/Globulin Ratio 0.8 L (0.9-1.6) Ur Random Creatinine mg/dL U Random Total Protein (<11.9) mg/dL Protein/Creatinin Ratio Blood Type Antibody Screen Med Orders - Current: Current Medications Acetaminophen (Tylenol) 650 mg PO Q4H PRN PRN Reason: Headache Last Admin: 05/05/20 03:59 Dose: 650 mg Documented by: Acetaminophen/Butalbital/Caffeine (Fioricet 325-50-40 Mg) 1 tab PO Q4H PRN PRN Reason: Headache Last Admin: 05/05/20 06:41 Dose: 1 tab Documented by: Calcium Gluconate (Calcium Gluconate) 1 gm IV ASDIRECTED PRN PRN Reason: respiratory distress Hydralazine HCl (Apresoline) 10 mg PO Q6H PRN PRN Reason: blood pressure >160/100 Hydroxyzine Pamoate (Vistaril) 25 mg PO BEDTIME PRN PRN Reason: Sleep Last Admin: 05/04/20 22:49 Dose: 25 mg Documented by: Sodium Chloride (Normal Saline) 1,000 mls @ 5 mls/hr IV ASDIRECTED RD Last Admin: 05/04/20 17:15 Dose: 5 mls/hr Documented by: Nifedipine (Procardia Xl) [address] Potassium Chloride (Klor-Con 10) [address] Last Admin: 05/04/20 21:51 Dose: 10 meq Documented by: Sodium Chloride (Saline Flush) 10 ml FLUSH ASDIRECTED PRN PRN Reason: Keep Vein Open Sodium Chloride (Saline Flush) 2.5 ml FLUSH ASDIRECTED PRN PRN Reason: Keep Vein Open Sodium Chloride (Normal Saline) 10 ml IV ASDIRECTED PRN PRN Reason: IV Use Discontinued Medications Magnesium Sulfate 4 gm/ Premix 100 mls @ 300 mls/hr IV BOLUS ONE Stop: 05/04/20 16:59 Last Admin: 05/04/20 17:20 Dose: 300 mls/hr Documented by: Magnesium Sulfate (Magnesium Sulfate In Water Premix) 20 gm in 500 mls @ 50 mls/hr IV CONTINUOUS RD; Protocol Last Admin: 05/05/20 03:51 Dose: 2 gm/hr, 50 mls/hr Documented by: Nifedipine (Procardia Xl) [address] Nifedipine (Procardia Xl) [address] Nifedipine (Procardia Xl) Confirm Administered Dose 30 mg .ROUTE .STK-MED ONE Stop: 05/04/20 18:14 Last Admin: 05/04/20 18:15 Dose: 30 mg Documented by: Nifedipine (Procardia Xl) 30 mg PO ONETIME ONE Stop: 05/04/20 20:06 Last Admin: 05/04/20 20:24 Dose: 30 mg Documented by: - Interaction Support Person: , Friend - Recovery Exam Fundal Tone: Firm Fundal Level: 3 Fingerbreadths Below Umbilicus Fundal Placement: Midline Lochia Amount: Small Lochia Color: Rubra/Red Episiotomy/Laceration: Approximated Bladder Status: Nonpalpable, Indwelling Catheter in Place Urinary Elimination: Indwelling Catheter - Exam General: Alert, Oriented Lungs: Normal Respiratory Effort Cardiovascular: Regular Rate, Regular Rhythm GI/Abdominal Exam: Normal Bowel Sounds, Soft Extremities: Pedal Edema (1+). No: Liv's Sign Skin: Warm, Dry, Intact Neurological: No New Focal Deficit Psy/Mental Status: Alert, Normal Affect, Normal Mood - Problem List & Annotations (1) Pre-eclampsia in period SNOMED Code(s): 327551297, 836227634 Code(s): O14.95 - UNSPECIFIED PRE-ECLAMPSIA, COMPLICATING THE PUERPERIUM Status: Acute Current Visit: Yes - Problem List Review Problem List Initiated/Reviewed/Updated: Yes - My Orders Last 24 Hours: My Active Orders 05/05/20 08:15 hydrALAZINE [Apresoline] 10 mg PO Q6H PRN - Assessment Assessment:: PP preeclampsia - Plan Plan:: Blood pressurse 120/70s through the night. Stop magnesium. Hydralazine for severe pressures as needed, otherwise continue procardia 60 mg XL daily. Monitor today with this medication regimen. Labs reassuring. VS otherwise reassuring.
[2020-05-05] MEDS: Potassium Chloride 10 MEQ Tab.ER PO SCH ×2 (08:35→21:13)
[2020-05-05] MEDS: NIFEdipine 30 MG Tab.ER PO SCH (17:01)
[2020-05-05] MEDS ORDERED: NIFEdipine 30 MG Tab.ER PO SCH (18:00)
[2020-05-05] MEDS: hydrOXYzine Pamoate 25 MG Cap PO PRN (21:13)
[2020-05-06 04:50] VITALS: BP 132/85; PULSE 82
--- NOTE | 2020-05-06 08:23 | PCM.PNPP ---
- General Info Date of Service: 05/06/20 Functional Status: Reports: Pain Controlled, Tolerating Diet, Ambulating, Urinating - Review of Systems General: Denies: Fever, Weakness, Fatigue Pulmonary: Denies: Shortness of Breath Cardiovascular: Denies: Chest Pain, Palpitations, Lightheadedness Gastrointestinal: Denies: Abdominal Pain Genitourinary: Reports: No Symptoms Musculoskeletal: Reports: No Symptoms Skin: Reports: No Symptoms Neurological: Reports: Paresthesia (along right 2nd and 3rd fingers, improving). Denies: Confusion, Dizziness, Headache Psychiatric: Reports: No Symptoms - General Info Date of Service: 05/06/20 - Patient Data Vital Signs - Most Recent: Last Vital Signs Temp 36.6 C 05/06/20 04:00 Pulse 82 05/06/20 04:00 Resp 16 05/06/20 04:00 BP 132/85 05/06/20 04:00 Pulse Ox 97 05/06/20 04:00 Weight - Most Recent: 63.503 kg Med Orders - Current: Current Medications Acetaminophen (Tylenol) 650 mg PO Q4H PRN PRN Reason: Headache Last Admin: 05/05/20 03:59 Dose: 650 mg Documented by: Acetaminophen/Butalbital/Caffeine (Fioricet 325-50-40 Mg) 1 tab PO Q4H PRN PRN Reason: Headache Last Admin: 05/05/20 21:55 Dose: 1 tab Documented by: Hydralazine HCl (Apresoline) 10 mg PO Q6H PRN PRN Reason: blood pressure >160/100 Hydroxyzine Pamoate (Vistaril) 25 mg PO BEDTIME PRN PRN Reason: Sleep Last Admin: 05/05/20 21:13 Dose: 25 mg Documented by: Nifedipine (Procardia Xl) 60 mg PO DAILY COUNTS INCLUDE 234 BEDS AT THE [facility] Last Admin: 05/05/20 17:01 Dose: 60 mg Documented by: Potassium Chloride (Klor-Con 10) 10 meq PO BID COUNTS INCLUDE 234 BEDS AT THE [facility] Last Admin: 05/05/20 21:13 Dose: 10 meq Documented by: Sodium Chloride (Saline Flush) 10 ml FLUSH ASDIRECTED PRN PRN Reason: Keep Vein Open Sodium Chloride (Saline Flush) 2.5 ml FLUSH ASDIRECTED PRN PRN Reason: Keep Vein Open Sodium Chloride (Normal Saline) 10 ml IV ASDIRECTED PRN PRN Reason: IV Use Discontinued Medications Calcium Gluconate (Calcium Gluconate) 1 gm IV ASDIRECTED PRN PRN Reason: respiratory distress Magnesium Sulfate 4 gm/ Premix 100 mls @ 300 mls/hr IV BOLUS ONE Stop: 05/04/20 16:59 Last Admin: 05/04/20 17:20 Dose: 300 mls/hr Documented by: Magnesium Sulfate (Magnesium Sulfate In Water Premix) 20 gm in 500 mls @ 50 mls/hr IV CONTINUOUS RD; Protocol Last Admin: 05/05/20 03:51 Dose: 2 gm/hr, 50 mls/hr Documented by: Sodium Chloride (Normal Saline) 1,000 mls @ 5 mls/hr IV ASDIRECTED RD Last Admin: 05/04/20 17:15 Dose: 5 mls/hr Documented by: Nifedipine (Procardia Xl) [address] Nifedipine (Procardia Xl) [address] Nifedipine (Procardia Xl) Confirm Administered Dose 30 mg .ROUTE .STK-MED ONE Stop: 05/04/20 18:14 Last Admin: 05/04/20 18:15 Dose: 30 mg Documented by: Nifedipine (Procardia Xl) 30 mg PO ONETIME ONE Stop: 05/04/20 20:06 Last Admin: 05/04/20 20:24 Dose: 30 mg Documented by: - Interaction Support Person: , Friend - Recovery Exam Fundal Tone: Firm Fundal Level: 1 Fingerbreadths Below Umbilicus Fundal Placement: Midline Lochia Amount: Scant Lochia Color: Rubra/Red Episiotomy/Laceration: Not Approximated Bladder Status: Voiding Urinary Elimination: Indwelling Catheter - Exam General: Alert, Oriented Lungs: Normal Respiratory Effort Cardiovascular: Regular Rate, Regular Rhythm GI/Abdominal Exam: Normal Bowel Sounds, Soft Extremities: No Pedal Edema (trace). No: Liv's Sign Skin: Warm, Dry, Intact Neurological: No New Focal Deficit Psy/Mental Status: Alert, Normal Affect, Normal Mood - Problem List & Annotations (1) Pre-eclampsia in period SNOMED Code(s): 421983604, [id number] Code(s): O14.95 - UNSPECIFIED PRE-ECLAMPSIA, COMPLICATING THE PUERPERIUM Status: Acute Current Visit: Yes - Problem List Review Problem List Initiated/Reviewed/Updated: Yes - My Orders Last 24 Hours: My Active Orders 05/05/20 08:15 hydrALAZINE [Apresoline] 10 mg PO Q6H PRN 05/06/20 08:19 Ready for Discharge [RC] PER UNIT ROUTINE - Assessment Assessment:: PP preeclampsia - Plan Plan:: Overall, blood presssures improved on procardia. They did get a little elevated again last night between 7-10 pm, but not severe range. She states headache has resolved. Allow to go home today with follow up Saturday. Rx sent in for procardia. To rest and stay hydrated over the weekend. To call with BP >160/110---will also send rx for hydralazine as needed for severe pressures .Patient voices her understanding to plan of care.
[2020-05-06] MEDS ORDERED: Potassium Chloride 20 MEQ Tab.ER PO ONE (08:30)
[2020-05-06] MEDS: NIFEdipine 30 MG Tab.ER PO SCH (09:15)
[2020-05-06] MEDS ORDERED: NIFEdipine 30 MG Tab.ER PO SCH (18:00)
== END 2020-05-06 09:01 | disposition home or self-care (01) ==
LOC: MW.OB 16:37 → INTOOBSV 16:37
PROVIDERS: ADMIT Obstetrics & Gynecology; ATTEND Obstetrics & Gynecology
DX: O14.15 Severe pre-eclampsia, complicating the puerperium (principal); O99.285 Endocrine, nutritional and metabolic diseases complicating the puerperium; E87.6 Hypokalemia; Z79.899 Other long term (current) drug therapy
CPT/HCPCS: 36415; 51702; 80053; 82570; 83735; 84156; 84550; 85027; 86850; 86900; 86901; A9270; J3475; J7030; 96365; 96366; G0378